=== PATIENT | male | born 1990 | race Hispanic/Latino ===

== ENCOUNTER 2020-11-07 15:50 | Emergency (ER) | payer SELFPAY ==
[2020-11-07 15:49] VITALS: BP 141/97; PULSE 85; RESP 19; TEMP 36.4; O2SAT 99
--- NOTE | 2020-11-07 16:02 | ECG_ITS ---
Measurements Intervals [place] Rate: 73 P: 50 IA: 129 QRS: 80 QRSD: 97 T: 44 QT: 367 QTc: 405 Interpretive Statements SINUS RHYTHM PEAKED T WAVES- CONSIDER HYPERKALEMIA OR ISCHEMIA BASELINE ARTIFACT- II, AVR, V3-V6 ABNORMAL ECG Electronically Signed On 11-07-2020 16:14:46 CDT by Guido Tamayo D.O.
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
[2020-11-07 17:18] LABS: Basophils Percent Auto 0.2 % (0.2-1.2); Eosinophils Percent Auto 0.1 % (0-4.4); Hematocrit 42.9 % (42.0-52.0); Immature Granulocyte Absolute 0.08 K/mm3 (0.00-0.031); Immature Granulocyte Percent A 0.5 % (0-0.5); Lymphocytes Absolute Auto 0.94 K/mm3 (0.9-3.2); Lymphocytes Percent Auto 5.8 % (18.3-44.2); Mean Corpuscular HGB Conc 32.6 g/dl (32-36); Mean Corpuscular Hemoglobin 29.6 pg (26-34); Mean Corpuscular Volume 90.7 fl (80-100); Mean Platelet Volume 10.1 fl (7.4-10.4); Monocytes Absolute Auto 0.8 K/mm3 (0.1-0.6); Neutrophils Absolute Auto 14.3 K/mm3 (1.3-6.7); Neutrophils Percent Auto 88.4 % (45.5-73.1); Platelet Count Result 291 k/mm3 (150-375); Red Blood Count 4.73 M/mm3 (4.6-6.20); Red Cell Distribution Width 12.9 % (11.5-14.5); White Blood Count 16.1 K/mm3 (4.5-10.0)
[2020-11-07 17:28] LABS: Anion Gap 12 mmol/L (8-16); Blood Urea Nitrogen 10 mg/dL (9-20); Calcium 9.9 mg/dL (8.4-10.2); Carbon Dioxide 26 mmol/L (22-30); Chloride 101 mmol/L (98-107); Estimated CRCL calculation 85 ml/min; Estimated Glomerular Filt Rate > 60; Glucose 120 mg/dL (75-110); Potassium 4.4 mmol/L (3.4-5.0); Sodium 139 mmol/L (137-145)
[2020-11-07 18:05] VITALS: BP 142/90; PULSE 84; RESP 15; O2SAT 100
[2020-11-07] MEDS: ACETAMINOPHEN 500 MG TABLET 1000 MG PO (18:05)
[2020-11-07] MEDS: OXcarbazepine 300 MG TABLET PO (18:16)
[2020-11-07] MEDS: OXcarbazepine 150 MG TABLET PO (18:16)
[2020-11-07 18:34] VITALS: BP 129/75; PULSE 79; RESP 15; O2SAT 100
== END 2020-11-07 18:35 | disposition home or self-care (01) ==
PROVIDERS: Emergency Provider Emergency Medicine
DX: G40.909 Epilepsy, unspecified, not intractable, without status epilepticus (principal); R94.31 Abnormal electrocardiogram [ECG] [EKG]
CPT/HCPCS: 36415; 80048; 85025; 93005; 99283; A9270

== ENCOUNTER 2022-03-14 12:30 | Inpatient (IN) | payer OTHER, SELFPAY ==
[2022-03-14] VITALS (60 sets, daily range): BP systolic 92–184; BP diastolic 45–102; PULSE 84–191; RESP 11–33; TEMP 37.1–39.4; O2SAT 93–100; BMI 24.3
--- NOTE | ~2022-03-14 | XR_ITS ---
XR chest ET placement DATE: 03/14/2022 20:05 INDICATION: Endotracheal tube placement TECHNIQUE: Portable supine AP chest on 03/14/2022 at 2001 hours COMPARISON: 03/14/2022 portable supine AP chest FINDINGS: ET tube 2.3 cm above yovani in satisfactory position. Normal heart size. No hilar or mediastinal enlargement. No pulmonary infiltrate or consolidation, ple ural effusion or pulmonary vascular congestion or pneumothorax or pneumomediastinum is noted. Included skeletal structures are unremarkable. IMPRESSION: ET tube in satisfactory position 2.3 cm above yovani Reviewed, dictated and finalized at [facility]. Reviewed, dictated and finalized at location [facility]. E
--- NOTE | ~2022-03-14 | XR_ITS ---
XR chest 1V portable 03/18/2022 07:56 Indication: Intubation. Respiratory distress. Procedure: AP portable chest Comparison: Comparison to multiple prior studies sequentially, with oldest reviewed study dated 03/02. Findings: Endotracheal tube tip 1.2 cm above the yovani. NG tube in the stomach. Left basilar infiltr ates are present. No pleural effusion, edema or pneumothorax. Impression: 1: Left basilar infiltrate may represent atelectasis or developing pneumonia. Reviewed, dictated and finalized at location A. CIPAL JAVA SOFTWARE ENGINEER Impression: 1: Left basilar infiltrate may represent atelectasis or developing pneumonia.
--- NOTE | ~2022-03-14 | XR_ITS ---
EXAMINATION: XR chest 1V portable DATE: 03/15/2022 05:57 INDICATION: Intubated. TECHNIQUE: A single frontal view of the chest was obtained. COMPARISON: Chest single view 03/14/2022, CT abdomen and pelvis 03/14/2022 FINDINGS: The chest demonstrates clear lungs without pneumonia, pleural effusion, or pneumothorax. Th e heart size is normal. The endotracheal tube tip is 3.6 cm above the yovani. The nasogastric tube lo ops in the stomach and back into the esophagus with tip in the distal esophagus. IMPRESSION: 1. No acute cardiopulmonary disease. 2. Nasogastric tube tip in the distal esophagus. Reviewed, dictated and finalized at location A. EN STITCHER
--- NOTE | ~2022-03-14 | XR_ITS ---
XR chest 1V portable DATE: 03/14/2022 15:01 INDICATION: Seizure TECHNIQUE: Portable supine AP views on 03/14/2022 at 1451 hours COMPARISON: None FINDINGS: Normal heart size. No hilar or mediastinal enlargement. No pulmonary infiltrate or consolid ation, pleural effusion or pulmonary vascular congestion or pneumothorax. IMPRESSION: No active cardiopulmonary disease Reviewed, dictated and finalized at location A. MOTIVE SERVICE TECHNICIAN
--- NOTE | ~2022-03-14 | CT_ITS ---
EXAMINATION: CT brain wo con DATE: 03/14/2022 15:12 INDICATION: Seizure TECHNIQUE: Computed tomography (CT) of the head was performed without intravenous contrast. The mA wa s adjusted according to patient size. Iterative reconstruction technique was employed. Exam dose: 60 5.33 mGy-cm total exam DLP. COMPARISON: 11/09/2016 CT brain FINDINGS: No intracranial mass lesion or hemorrhage or cerebrovascular accident. No midline shift or mass effect. Normal ventricular size. No subdural or epidural hematoma. Normal phillips-white matter diff erentiation. Orbits are unremarkable. Paranasal sinuses and mastoid air cells are unremarkable. No fracture or bone destruction of the cranial vault. IMPRESSION: Negative Reviewed, dictated and finalized at [facility]. Reviewed, dictated and finalized at location A. L CEILING HANGER IMPRESSION: Negative
--- NOTE | ~2022-03-14 | CT_ITS ---
EXAMINATION: CT cervical spine wo con DATE: 03/14/2022 15:12 INDICATION: Seizure TECHNIQUE: Computed tomography (CT) of the cervical spine was performed without intravenous contrast. Automated exposure control and iterative reconstruction technique were employed. Exam dose: 358.28 mGy-cm total exam DLP. COMPARISON: None FINDINGS: Reversal of cervical curvature, which may be due to muscle spasm or positioning. Moderate t o moderately severe degenerative disc disease at C5-6. Mild degenerative disease at C4-5, C6-7. C1 and C2 are normally aligned and the odontoid process is intact. No fracture or dislocation or lock ed facet or prevertebral soft tissue swelling. IMPRESSION: Reversal of cervical curvature which may be due to muscle spasm or positioning Multilevel mild to moderately severe degenerative disc disease No fracture or dislocation or locked facet Note: ET tube extends only to the C3 level., Mid the posterior aspect of the superior tip of the epig lottis Reviewed, dictated and finalized at [facility]. Reviewed, dictated and finalized at location A. S EXECUTIVE IMPRESSION: Reversal of cervical curvature which may be due to muscle spasm or positioning Multilevel mild to moderately severe degenerative disc disease No fracture or dislocation or locked facet Note: ET tube extends only to the C3 level., Mid the posterior aspect of the pollack perior tip of the epiglottis
--- NOTE | ~2022-03-14 | XR_ITS ---
XR abdomen NG/feed tube insert DATE: 03/14/2022 20:19 INDICATION: NG tube insertion TECHNIQUE: Portable supine AP view on 03/14/2022 at 2006 hours COMPARISON: None FINDINGS: A nasogastric tube enters the stomach, coiling once and then returning into the distal esop hagus, with the proximal side port in the very distal aspect of the esophagus just above the diaphrag m. NG tube tip is in the distal esophagus directed cephalad. Repositioning is recommended. IMPRESSION: NG tube enters stomach and then reenters the esophagus, with the proximal side-port in th e very lower aspect of the thorax, the distal tip of the NG tube in the lower esophagus, directed cep halad. Repositioning is recommended. Reviewed, dictated and finalized at [facility]. Reviewed, dictated and finalized at location A. ATRIC ORTHODONTIST IMPRESSION: NG tube enters stomach and then reenters the esophagus, with the pr oximal side-port in the very lower aspect of the thorax, the distal tip of the NG tube in the lower esophagus, directed cephalad. Repositioning is recommended .
--- NOTE | ~2022-03-14 | XR_ITS ---
EXAMINATION: XR chest 1V portable DATE: 03/16/2022 05:50 INDICATION: Intubated. TECHNIQUE: A single frontal view of the chest was obtained. COMPARISON: Chest single view 03/15/2022, CT abdomen and pelvis 03/14/2022 FINDINGS: There is no pneumonia, pleural effusion, or pneumothorax. The heart size is normal. The end otracheal tube tip is 2.7 cm above the yovani. The nasogastric tube loops in the stomach with tip in the distal esophagus. IMPRESSION: 1. No acute cardiopulmonary disease. 2. Nasogastric tube tip in the distal esophagus. Reviewed, dictated and finalized at location A. SPERSON HOSIERY
--- NOTE | ~2022-03-14 | XR_ITS ---
EXAMINATION: XR abdomen NG/feed tube rechec DATE: 03/16/2022 09:09 INDICATION: Nasogastric tube adjustment. TECHNIQUE: A semiupright view of the abdomen was obtained. COMPARISON: Abdomen radiograph 03/14/2022 FINDINGS: There are no dilated loops of bowel. The nasogastric tube tip is in the stomach. IMPRESSION: 1. Nasogastric tube tip in the stomach. Reviewed, dictated and finalized at location A. ADJUSTER
--- NOTE | ~2022-03-14 | XR_ITS ---
EXAMINATION: XR chest 1V portable DATE: 03/17/2022 06:17 INDICATION: Intubated. TECHNIQUE: A single frontal view of the chest was obtained. COMPARISON: Chest single view 03/16/2022, CT abdomen and pelvis 03/14/2022 FINDINGS: There is no pneumonia, pleural effusion, or pneumothorax. The heart size is normal. The end otracheal tube tip is 2.0 cm above the yovani. The nasogastric tube tip is in the stomach. IMPRESSION: 1. No acute cardiopulmonary disease. Reviewed, dictated and finalized at location A. ICAL CARE PHYSICIAN
--- NOTE | ~2022-03-14 | CT_ITS ---
EXAMINATION: CT abdomen pelvis w con DATE: 03/14/2022 18:11 INDICATION: Leukocytosis. Abdominal pain. Fever. Unresponsive. TECHNIQUE: Computed tomography (CT) of the abdomen and pelvis was performed with 100 CC Omnipaque 350 intravenous contrast. Automated exposure control and iterative reconstruction technique were employe d. Exam dose: 520.22 mGy-cm total exam DLP. COMPARISON: None. FINDINGS: The lung bases are clear. Normal heart size. No pericardial or pleural effusion. The liver, gallbladder, bile ducts, spleen, pancreas and pancreatic duct are unremarkable. Normal morphology of the adrenal glands. No renal mass lesion or urinary tract calculus or hydrourete ronephrosis or abnormality of the urinary bladder is noted. Normal caliber of the abdominal aorta. No intraperitoneal or retroperitoneal or pelvic mass lesion or adenopathy or ascites. No apparent evidence of appendicitis. No bowel obstruction or intraperitoneal free air. Small fat-containing umbilical hernia. Included skeletal structures are unremarkable. IMPRESSION: No significant abnormality Reviewed, dictated and finalized at [facility] Reviewed, dictated and finalized at [facility] DESTRU[employer] TESTING [employer]IST IMPRESSION: No significant abnormality
--- NOTE | 2022-03-14 12:40 | ED.SEIZURE ---
HPI - Seizure General Chief Complaint: Seizure Stated Complaint: SEIZURE Time Seen by Provider: 03/14/22 12:36 Source: EMS Mode of arrival: EMS Limitations: clinical condition History of Present Illness HPI Narrative: 31 years old male brought to the emergency room by ambulance from home because of unresponsiveness. Patient believed to have a seizure, patient was combative with EMS upon Emergent from seizure. Patient had another seizure while in the ambulance. Patient arrived to the ED on nasopharyngeal tube Please on Oxcarbamazepine 300 mg twice a day, a bottle of methadone still full since . Obviously patient does not take his medications. No family member or significant other at the bedside. Patient arrived to the ED unresponsive/possible postictal. Patient's father came to the emergency room later and told me that last time have seen the patient was noon yesterday, at 5 AM he heard some noise in his room he ran to the room and found him seizing. He is telling me that he is at least 8-10 times before the ambulance arrived to his home. He reports that the patient is disabled because of injury and seizure, patient does not have a job, does not take drugs, and he is not sure if his son takes his seizure medication or not. Last seizure was about 7 months ago Seizure History: Yes Related Data Home Medications Medication Instructions Recorded Confirmed oxcarbazepine 300 mg tablet 300 mg PO BID 11/07/20 Allergies Allergy/AdvReac Type Severity Reaction Status Date / Time No Known Allergies Allergy Verified 11/07/20 16:06 Review of Systems Review of Systems: ROS unobtainable: Yes unobtainable due to medical condition and unobtainable due to mental status PMFSH Past Medical History Medical History Anxiety Depression Pseudoseizure Seizure disorder Surgical History Surgical History No pertinent past surgical history Social History Social History Substance use type: marijuana Exam Narrative: General appearance: Well-developed, well-nourished, unresponsive to verbal commands, opening eyes every now and then Skin: Normal color Head: Normocephalic, nontraumatic Eyes: Clear conjunctiva ENT: Oropharynx normal, ears normal, nose normal Neck: Supple, nontender Chest and respiratory: Airway patent, no respiratory distress, no accessory muscle use Heart: Regular rate/rhythm Abdomen: Soft, nontender, no organomegaly, quiet bowel sounds Vascular: Normal peripheral pulses, normal capillary refill. Neurologic: Responsive to painful stimulation/withdrawal Const: General: ill appearing Course Course Emergency Course: Patient arrived to the ED with possibly postictal, confused, sleepy, responsive to painful stimulation by opening his eyes, later patient was able to open his eye and sit in the bed, restless all over, his temperature on arrival to the ED was 37.1, later his temperature went up to 38.8, tested positive for RSV, WBC is 22.9, secondary to bacterial infection versus reaction leukocytosis. Later patient vomited coffee-ground substance, no history of alcohol abuse, spinal tap was done, clear cerebrospinal fluid, patient received 1 g of Keppra IV on arrival to the emergency room, later had ceftriaxone, vancomycin and dexamethasone for possible bacterial meningitis, and acyclovir for possible viral meningitis/encephalitis. Creatinine is 1.7 compared to 1.1 in the last few months, patient received 2 L of normal saline IV. Consultations Consultation #1: DR Eagle
--- NOTE | 2022-03-14 12:47 | ECG_ITS ---
Measurements Intervals [place] Rate: 103 P: 73 CO: 135 QRS: 88 QRSD: 84 T: 60 QT: 291 QTc: 381 Interpretive Statements SINUS TACHYCARDIA POSSIBLE RIGHT ATRIAL ENLARGEMENT LEFT ATRIAL ENLARGEMENT PEAKED T WAVES- CONSIDER HYPERKALEMIA BASELINE ARTIFACT- I ABNORMAL ECG COMPARED TO ECG 11/07/2020 16:00:35 SINUS TACHYCARDIA NOW PRESENT Electronically Signed On 03-15-2022 7:41:54 AIRPORT DUTY MANAGER by Guido Tamayo D.O.
[2022-03-14] MEDS: levETIRAcetam 1000MG/NACL100ML 1,000 MG/100 ML BAG 400 MG IVPB (13:11)
[2022-03-14 13:14] LABS: Basophils Absolute Auto 0.1 K/mm3 (0.0-0.1); Basophils Percent Auto 0.3 % (0.2-1.2); Hematocrit 46.9 % (42.0-52.0); Hemoglobin 15.6 g/dL (14.0-18.0); Immature Granulocyte Absolute 0.24 K/mm3 (0.00-0.031); Immature Granulocyte Percent A 1.1 % (0-0.5); Lymphocytes Absolute Auto 2.03 K/mm3 (0.9-3.2); Lymphocytes Percent Auto 8.9 % (18.3-44.2); Mean Corpuscular HGB Conc 33.3 g/dl (32-36); Mean Corpuscular Hemoglobin 31.6 pg (26-34); Mean Corpuscular Volume 94.9 fl (80-100); Mean Platelet Volume 10.8 fl (7.4-10.4); Monocytes Absolute Auto 1.7 K/mm3 (0.1-0.6); Monocytes Percent Auto 7.6 % (2.6-8.5); Neutrophils Absolute Auto 18.8 K/mm3 (1.3-6.7); Neutrophils Percent Auto 82.1 % (45.5-73.1); Platelet Count Result 395 k/mm3 (150-375); Red Blood Count 4.94 M/mm3 (4.6-6.20); Red Cell Distribution Width 13.1 % (11.5-14.5); White Blood Count 22.9 K/mm3 (4.5-10.0)
[2022-03-14 13:27] LABS: Albumin Level 5.8 g/dL (3.5-5.1); Alkaline Phosphatase 105 U/L (38-126); Anion Gap 33 mmol/L (8-16); Aspartate Amino Transferase 44 U/L (17-59); Bilirubin,Total 0.2 mg/dL (0.2-1.3); Blood Urea Nitrogen 8 mg/dL (9-20); Calcium 9.4 mg/dL (8.4-10.2); Carbon Dioxide 8 mmol/L (22-30); Chloride 104 mmol/L (98-107); Estimated Glomerular Filt Rate 48; Glucose 204 mg/dL (65-110); Potassium 4.3 mmol/L (3.4-5.0); Sodium 145 mmol/L (137-145)
[2022-03-14 13:33] LABS: Alanine Aminotransferase 38 U/L (6-50)
[2022-03-14] MEDS: LORazepam INJ (*CRX) 2 MG/ML VIAL IV PUSH ×3 (13:36→20:10)
[2022-03-14 13:46] LABS: Ethanol < 10 mg/dL (<10)
[2022-03-14 13:47] LABS: Creatine Kinase 322 U/L (55-170)
[2022-03-14 13:49] LABS: INR 1.1; Prothrombin Time 13.6 Seconds (11.1-14.7)
[2022-03-14] MEDS: SODIUM CHLORIDE 0.9% IV 1,000 ML 999 ML IV CONT ×2 (13:57→20:11)
--- NOTE | 2022-03-14 14:28 | PCRCNOTE ---
ABG CANCELLED PER DR. GABRIEL. PT. IS VERY WILD AND COMBATIVE.
[2022-03-14 15:55] LABS: Prothrombin Time 13.2 Seconds (11.1-14.7)
[2022-03-14 15:56] LABS: Lactic Acid Reflex 3.4 mmol/L (0.7-2.0); Partial Thromboplastin Time 26.3 SECONDS (22.3-36.8)
[2022-03-14 15:59] LABS: CRP < 0.5 mg/dL (<1.0)
[2022-03-14 16:23] LABS: Influenza A QL RT-PCR Negative (Negative); Influenza B QL RT-PCR Negative (Negative); RSV RNA, RT-PCR Positive (Negative); SARS-CoV-2 RNA PCR Negative
[2022-03-14 16:27] LABS: Monoscreen Negative (Negative); Negative Monotest Control Negative (Negative); Positive Monotest Control Positive (Positive)
[2022-03-14 18:16] LABS: Glucose CSF 94 mg/dL (40-70); Total Protein CSF 64 mg/dL (12-60)
[2022-03-14] MEDS: cefTRIAXone 2 GM in SODIUM CHLORIDE 0.9% IV 100 ML 200 ML IVPB (18:25)
[2022-03-14] MEDS: ETOMIDATE 20 MG/10 ML AMPUL 60 MG IV PUSH (18:26)
[2022-03-14 18:32] LABS: Appearance CSF Clear (Clear); CSF source CSF; Color CSF Colorless (Colorless); Lymphocytes CSF 40 % (40-80); Neutrophils CSF 20 % (0-6); Nucleated Cell CSF 4 /uL (0-5); Red Blood Cell CSF 8 (0-2)
[2022-03-14 18:33] LABS: Monocytes CSF 40 % (15-45)
[2022-03-14 18:42] LABS: Reflex Lactic Acid Yes or No Add Lactic
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
--- NOTE | 2022-03-14 19:50 | WPDPROCEDUR ---
Procedures Intubation Intubation Date: 03/14/22 Intubation Time: 19:50 Consent: Intubated emergently. A pre-procedural Time-Out was completed immediately before starting the procedure and confirmed: Patient Identification, Site, Procedure, Patient Position and the Availability of Requisite Equipment: Yes Sedative: etomidate Mg given: 20 Paralytic: succinylcholine Mg given: 100 Laryngoscope: fiber optic video scope Assist device used: fiber optic device ET tube size: 8 Tube secured depth (cm): 23 Tube secured location: teeth Tube placement confirmation: visualized tube passing through cords, equal breath sounds bilaterally, no breath sounds over epigastrium and confirmation by capnometry Patient tolerated procedure: well Intubation complications: none Additional comments: Patient was intubated easily and atraumatically on 1st attempt. SpO2 remained in the high 90s the entire time. Chest x-ray pending at the time of this dictation.
[2022-03-14] MEDS: PROPOFOL IV EMULSION 100 ML 2.3 MG IV CONT (19:55)
[2022-03-14] MEDS: ACYCLOVIR SODIUM IVPB 800 MG in DEXTROSE 5% IN WATER 250 ML 266 MG IVPB (20:46)
[2022-03-14] MEDS: MIDAZOLAM 100MG/NS 100ML(*CRX) 100 MG/100 ML BAG 6 MG IV CONT (21:00)
[2022-03-14] MEDS: PANTOPRAZOLE SODIUM IV 40 MG VIAL IV PUSH ×2 (21:05→21:22)
[2022-03-14] MEDS: SODIUM CHLORIDE 0.9% IV 1,000 ML 150 ML IV CONT (21:25)
[2022-03-14 21:30] LABS: Base Excess ABG -5.3 mEq/l (+/-2.0); HCO3 ABG 17.6 mEq/l (22.0-26.0); Oxygen Saturation ABG 99.2 % (95.0-100.0)
[2022-03-14 21:31] LABS: Total Hemoglobin 12.9 g/dL (12.0-18.0)
[2022-03-14 21:33] LABS: Carboxyhemoglobin 0.3 % THb (0-2.0); Oxyhemoglobin 97.6 % THb (90.0-100.0)
[2022-03-14 21:34] LABS: Device VENTILATOR; Fractional Inspired Oxygen 40 %; Methemoglobin ABG 0.4 %THb (0-1.5); Modified Allen's Test Pass; PO2 FiO2 Ratio Arterial Blood 4.29 %; Reduced Hemoglobin 1.7 %THb (0-5.0); Site Drawn RIGHT RADIAL
[2022-03-14 21:35] LABS: Arterial Blood Gas PEEP 5 cmH2O; Arterial Blood Gas Tidal Volume 400 ml; Arterial Blood Gas Vent Mode CMV; Arterial Blood Gas Ventilator rate 15 /MIN
[2022-03-14] MEDS: LABETALOL HCL INJ 100 MG/20 ML VIAL 20 MG IV PUSH (21:37)
--- NOTE | 2022-03-14 22:00 | ADMGEN ---
This patient, Conrad Frye, was admitted to Intensive Care Unit-10. Patient/family oriented to hospital policies and general routines including ID bracelet, bed and alarms, visiting hours, pain management, procedures, bathroom and other care routines, personal items, smoking policy, room service/diet, and visiting hours. Information on how to activate the Rapid Response Team has been discussed. Patient/Family are encouraged to report perceived risks to care and to ask questions if they do not understand what they are told or what they should do.
--- NOTE | 2022-03-14 22:09 | PC.NURSE ---
This RN assumed care of patient at aprx 191. Upon assessment of pt RN noticed seizure like activity followed by pulling of tubes and IVs. RN spoke with ERP on duty at that time Dr. Forde who is agreeable that pt would need to be intubated and sedated to protect his airway. Assisting in the room was attending Dr. Chary Mei who completed the tube placement, RASHIDA Harris, Bárbara Tinoco RN,and 3 respiratory therapists. Pt was combative and restrained with soft restraints on all extremities at 1944. IV lines were placed by Bárbara FIELD. At [address] Chary Mei. Tube size 8, 24 at the teeth verified with bedside xray. At 1999 NG tube in left nare placed by Kimberly FIELD along with the 16F temp lewis. NG tube set to intermittent suction and Lewis had good urine output. Medications given for sedation per Dr. Chary Mei verbal order read back at 1944 included 100mg of Succs and 20 etomodate. Pt tolerated procedure well. Propofol drip ordered per Dr. Chary Mei verbal order read back. Pt maxed out of propofol drip at 50mcs/kg/min. Pt not tolerating propofol only for sedation. Dr. Garcia in room to assess pt verbal order read back to give one time 2mg iv push of versed and 50mg of rocks iv push one time. Versed drip ordered verbal order read back by erp Dr. Garcia start Versed drip at 6mg/hr. pt showing seizure like activity and versed maxed out at 10mg/hr. Pt BP maintained, feverish at 102, and HR in 190's. Tylenol IV given and icepacks placed. Dr. Garcia and Dr. Martin both ERP in room to assess pt and verbal order read back give 20mg of labetolol iv push one time for heart rate. Push given and pt heart rate in the 120's. Pt at this time stable enough for transport to ICU.
[2022-03-14] MEDS: MINERAL OIL/WHITE PETROLATUM OINTMENT 1 APPLIC EACH EYE (22:48)
[2022-03-14 23:25] LABS: Lactic Acid 2.3 mmol/L (0.7-2.0)
[2022-03-14 23:28] LABS: CRP 1.4 mg/dL (<1.0)
[2022-03-14 23:42] LABS: Erythrocyte Sedimentation Rate 3 mm/hr (0-20); Hemoglobin A1C 5.1 % (<5.7)
[2022-03-14] MEDS: MIDAZOLAM HCL (*CRX) 2 MG/2 ML VIAL 4 MG IV PUSH (23:54)
[2022-03-14 23:55] LABS: Anion Gap 15 mmol/L (8-16); Blood Urea Nitrogen 9 mg/dL (9-20); Carbon Dioxide 18 mmol/L (22-30); Chloride 105 mmol/L (98-107); Creatine Kinase 3099 U/L (55-170); Estimated CRCL calculation 99 ml/min; Estimated Glomerular Filt Rate > 60; Glucose 88 mg/dL (65-110); Potassium 3.7 mmol/L (3.4-5.0); Sodium 138 mmol/L (137-145)
[2022-03-15] VITALS (50 sets, daily range): BP systolic 96–130; BP diastolic 64–94; PULSE 69–108; RESP 15–23; TEMP 36.2–39.4; O2SAT 100; BMI 20.9
[2022-03-15 00:18] LABS: Procalcitonin 1.3 ng/mL
[2022-03-15] MEDS: OXcarbazepine 300 MG TABLET 600 MG PO ×3 (02:24→20:54)
[2022-03-15] MEDS: MIDAZOLAM HCL (*CRX) 2 MG/2 ML VIAL 4 MG IV PUSH ×2 (02:25→15:37)
[2022-03-15] MEDS: PROPOFOL IV EMULSION 100 ML 23.01 MG IV CONT ×4 (02:41→17:06)
[2022-03-15 04:33] LABS: Basophils Percent Auto 0.2 % (0.2-1.2); Hematocrit 35.5 % (42.0-52.0); Hemoglobin 11.9 g/dL (14.0-18.0); Immature Granulocyte Absolute 0.07 K/mm3 (0.00-0.031); Immature Granulocyte Percent A 0.7 % (0-0.5); Lymphocytes Absolute Auto 1.11 K/mm3 (0.9-3.2); Lymphocytes Percent Auto 10.3 % (18.3-44.2); Mean Corpuscular HGB Conc 33.5 g/dl (32-36); Mean Corpuscular Hemoglobin 30.4 pg (26-34); Mean Corpuscular Volume 90.8 fl (80-100); Mean Platelet Volume 10.4 fl (7.4-10.4); Monocytes Absolute Auto 0.4 K/mm3 (0.1-0.6); Monocytes Percent Auto 3.9 % (2.6-8.5); Neutrophils Absolute Auto 9.1 K/mm3 (1.3-6.7); Neutrophils Percent Auto 84.9 % (45.5-73.1); Platelet Count Result 233 k/mm3 (150-375); Red Blood Count 3.91 M/mm3 (4.6-6.20); Red Cell Distribution Width 13.1 % (11.5-14.5); White Blood Count 10.8 K/mm3 (4.5-10.0)
[2022-03-15 04:54] LABS: Alanine Aminotransferase 24 U/L (6-50); Albumin Level 4.2 g/dL (3.5-5.1); Alkaline Phosphatase 57 U/L (38-126); Anion Gap 12 mmol/L (8-16); Aspartate Amino Transferase 68 U/L (17-59); Bilirubin,Total 0.3 mg/dL (0.2-1.3); Blood Urea Nitrogen 8 mg/dL (9-20); Calcium 8.4 mg/dL (8.4-10.2); Carbon Dioxide 20 mmol/L (22-30); Chloride 105 mmol/L (98-107); Estimated CRCL calculation 99 ml/min; Estimated Glomerular Filt Rate > 60; Glucose 103 mg/dL (65-110); Potassium 3.5 mmol/L (3.4-5.0); Sodium 137 mmol/L (137-145)
[2022-03-15] MEDS: cefTRIAXone 2 GM in SODIUM CHLORIDE 0.9% IV 100 ML 200 ML IVPB ×2 (05:11→17:07)
[2022-03-15 05:12] LABS: Alveolar/Arterial O2 Gradient 84.5 mmHg; Base Excess ABG -3.9 mEq/l (+/-2.0); Fractional Inspired Oxygen 40 %; HCO3 ABG 20.2 mEq/l (22.0-26.0); Oxygen Content ABG 17.8 %vol (16.0-22.0); Oxygen Saturation ABG 99.1 % (95.0-100.0); Oxyhemoglobin 97.7 % THb (90.0-100.0); PCO2 ABG 33.6 mmHg (35.0-45.0); PO2 ABG 162.1 mmHg (80.0-100.0); PO2 FiO2 Ratio Arterial Blood 4.05 %; Total Hemoglobin 12.7 g/dL (12.0-18.0); pH ABG 7.396 (7.350-7.450)
[2022-03-15 05:13] LABS: Device VENTILATOR; Modified Allen's Test Pass; Site Drawn LEFT RADIAL
[2022-03-15 05:14] LABS: Arterial Blood Gas PEEP 5 cmH2O; Arterial Blood Gas Tidal Volume 400 ml; Arterial Blood Gas Vent Mode CMV; Arterial Blood Gas Ventilator rate 15 /MIN
[2022-03-15 05:49] LABS: Creatine Kinase 3093 U/L (55-170)
[2022-03-15] MEDS: SODIUM CHLORIDE 0.9% IV 1,000 ML 150 ML IV CONT (06:03)
[2022-03-15] MEDS: MIDAZOLAM 100MG/NS 100ML(*CRX) 100 MG/100 ML BAG 10 MG IV CONT ×2 (06:04→14:19)
[2022-03-15] MEDS: ACYCLOVIR SODIUM IVPB 800 MG in DEXTROSE 5% IN WATER 250 ML 266 MG IVPB (06:04)
[2022-03-15] MEDS: levETIRAcetam 1000MG/NACL100ML 1,000 MG/100 ML BAG 400 MG IVPB ×2 (08:51→22:17)
[2022-03-15] MEDS: PANTOPRAZOLE SODIUM IV 40 MG VIAL IV PUSH ×2 (08:51→20:50)
[2022-03-15] MEDS: POTASSIUM CHLORIDE 20 MEQ PACKET (FOR LIQUID) 40 MEQ FEED TUBE (09:02)
--- NOTE | 2022-03-15 09:03 | WPDCNINT ---
Assessment and Plan Assessment and plan (1) Acute respiratory failure: Code(s): J96.00 - Acute respiratory failure, unspecified whether with hypoxia or hypercapnia Status: Acute Assessment and Plan: Acute Respiratory failure secondary to status epilepticus Continue full mechanical ventilation support to prevent hypoxemia/hypercarbia and end organ damage. ABG and vent settings reviewed Chest x-ray reviewed -withdraw OG tube by 5 cm . Low tidal volume ventilation strategy to prevent volutrauma (2) Acute kidney injury: Code(s): N17.9 - Acute kidney failure, unspecified Status: Acute Assessment and Plan: Likely secondary to hypovolemia and rhabdomyolysis Improving with IV fluids Electrolytes acceptable Monitor urine output electrolytes and creatinine Replace low potassium (3) Metabolic acidosis: Code(s): E87.20 - Acidosis, unspecified Status: Acute Assessment and Plan: Secondary to acute kidney injury and rhabdomyolysis Improving Monitor (4) Status epilepticus: Code(s): G40.901 - Epilepsy, unspecified, not intractable, with status epilepticus Status: Acute Assessment and Plan: Patient has history of seizures and presented with status epilepticus Currently sedated with Versed and propofol Continue Keppra and home medication of ox carbazepine Consult neurology Obtain EEG (5) RSV (respiratory syncytial virus infection): Code(s): B33.8 - Other specified viral diseases Status: Acute Assessment and Plan: Symptomatic treatment (6) Hematemesis: Code(s): K92.0 - Hematemesis Status: Acute Assessment and Plan: There was some report of hematemesis in the ED but which he tube suction has been clear He did had drop in his hemoglobin but did receive IV fluids which could explain Monitor hemoglobin every 6 hours IV PPI q.12 hours Checked Stool Hemoccult (7) Fever: Code(s): R50.9 - Fever, unspecified Status: Acute Assessment and Plan: Patient was febrile in the ER. He was tested positive for RSV which could explain the fever due to his mental status and sub status epilepticus meningitis was suspected Patient had LP done which showed only for nucleated cells Glucose was slightly elevated at 94 and total protein was slightly elevated at 64 He is currently on empiric antibiotics meningitis and HSV encephalitis Gram stain cultures are pending HSV PCR has been ordered and is pending Will discuss with neurology regarding discontinuing antibiotics and acyclovir (8) Rhabdomyolysis: Code(s): M62.82 - Rhabdomyolysis Status: Acute Assessment and Plan: Likely secondary to seizures Continue IV fluids Monitor CK level Plan DVT prophylaxis -start Lovenox 24 hours after LP Stress ulcer prophylaxis -IV PPI Nutrition -start Tube Feeds Code Status - Full Code Total Critical Care Time - 35 minutes Due to a high probability of clinically significant, life threatening deterioration, the patient required my highest level of preparedness to intervene emergently and I personally spent this critical care time directly and personally managing the patient. This critical care time included obtaining a history; examining the patient; pulse oximetry; ordering and review of studies; arranging urgent treatment with development of a management plan; evaluation of patient's response to treatment; frequent reassessment; and discussions with other providers. It was exclusive of separately billable procedures and treating other patients and teaching time. Please see Assessment and Plan section and the rest of the note for further information on patient assessment and treatment Pta Consult Note Consult date: 03/15/22 Reason for consult: Status epilepticus, acute respiratory failure HPI: Conrad Frye is a 31 year old male with history of seizure disorder who presented to the emergency department via EMS fr
[2022-03-15] MEDS: LACTATED RINGERS 1,000 ML 150 ML IV CONT ×2 (09:10→17:06)
[2022-03-15] MEDS: MINERAL OIL/WHITE PETROLATUM OINTMENT 1 APPLIC EACH EYE ×2 (09:31→20:50)
[2022-03-15 09:44] LABS: Glucose Point of Care 119 mg/dl (65-105)
[2022-03-15 12:03] LABS: Glucose Point of Care 100 mg/dl (65-105)
[2022-03-15 12:04] LABS: Hematocrit 33.5 % (42.0-52.0); Hemoglobin 11.6 g/dL (14.0-18.0)
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
[2022-03-15] MEDS: ACYCLOVIR SODIUM IVPB ×2 (14:22→22:44)
[2022-03-15] MEDS: WATER IVPB ×2 (14:22→22:44)
[2022-03-15] MEDS: DEXTROSE 5% IVPB ×2 (14:22→22:44)
--- NOTE | 2022-03-15 16:36 | WPDGICN ---
Assessment and Plan Assessment and plan (1) Status epilepticus: Code(s): G40.901 - Epilepsy, unspecified, not intractable, with status epilepticus Status: Acute Assessment and Plan: treated by friend of the court and neurology, underwent lumbar puncture because had fever intubated (2) Hematemesis: Code(s): K92.0 - Hematemesis Status: Acute Assessment and Plan: report of coffee ground emesis hb drop but after iv fluids, probably was hemoconcentrated on arrival iv protonix and monitor for signs of bleeding egd only if drop in h/h or obvious sign of bleeding (3) RSV (respiratory syncytial virus infection): Code(s): B33.8 - Other specified viral diseases Status: Acute (4) HERBERTH (acute kidney injury): Code(s): N17.9 - Acute kidney failure, unspecified Status: Acute Assessment and Plan: treatment by icu (5) Metabolic acidosis: Code(s): E87.20 - Acidosis, unspecified Status: Acute (6) Acute respiratory failure: Code(s): J96.00 - Acute respiratory failure, unspecified whether with hypoxia or hypercapnia Status: Acute Assessment and Plan: intubated, also airway protection GI Consult Note Consult date/time: 03/15/22 16:36 Reason for consult: coffee ground emesis HPI: Conrad Frye is a 31 year old male with history of seizure disorder who presented to the emergency department via EMS from home for multiple seizure and altered mental status, history is obtained from records as he is intubated in the ICU.? In ED he was combative and confused and had at least 1 episode of seizure in the ER and also history of non-compliance with medications. In ED he was treated with Keppra and Ativan.? Head CT was unremarkable.? Pertinent labs on arrival include a white blood cell count 22.9, carbon dioxide 8, anion gap 33, BUN 8, creatinine 1.70, lactic acid 3.4, and CK 322. CT of the head and neck did not show any acute finding and his chest x-ray was unremarkable.? He also had fever with temperature 102.9? Fahrenheit, lumbar puncture was performed, and he was started on empiric antibiotics and antivirals for possible meningitis and/or encephalitis. RSV positive. He was intubated because concerned of status epilepticus, also report of episode of coffee ground emesis. No report of bleeding since admission. NGT in place and he is on enteral feeding, intubated. Review of Systems Review of Systems: ROS unobtainable: Yes unobtainable due to endotracheal tube and unobtainable due to mental status PMFSH Past Medical History Medical History Anxiety Depression Pseudoseizure Seizure disorder Surgical History Surgical History Surgical history unknown Family History Family History Other Family history unknown Social History Social History Social History: Surrogate medical decision maker: Code status: Full code. Smoking status: Unknown if ever smoked Alcohol intake: unknown Substance use: unknown Substance use type: marijuana Additional living arrangements comments: The patient lives with his father in [place]. Additional occupation/education comments: Disabled. Spiritual care concerns: No Meds Home Medications and Allergies Home Medications Medication Instructions Recorded Confirmed Type oxcarbazepine 600 mg tablet 600 mg PO BID 03/14/22 03/14/22 History Allergies Allergy/AdvReac Type Severity Reaction Status Date / Time No Known Allergies Allergy Verified 11/07/20 16:06 Vital Signs Vital Signs - 24 hr 03/14/22 16:45 03/14/22 16:46 03/14/22 17:00 Temperature Pulse Rate 117 H 119 H 113 H Respiratory Rate 22 H 22 H 25 H Blood Pressure 110/58 L Pulse Oximetry 95 98 97 Oxygen Delivery Fraction
[2022-03-15 16:44] LABS: Appearance Urine Slightly Cloudy (Clear); Bilirubin Urine Negative (Negative); Blood Urine Trace-intact (Negative); Color Urine Yellow (Yellow); Glucose Urine UA Negative (Negative); Ketones Urine 1+ mg/dL (Negative); Leukocyte Esterase Ur Negative LEU/UL (Negative); Nitrate Urine Negative (Negative); Protein Urine Negative (Negative); Urobilinogen Urine 0.2 mg/dL (<2.0)
[2022-03-15 16:49] LABS: Bacteria Urine Trace /hpf; Mucus Urine Rare /lpf; Squamous Epithelial Cell Urine Rare /hpf (Few); WBC Urine 0-3 /hpf
[2022-03-15 17:00] LABS: Amphetamine Screen Urine Negative (Negative); Barbiturate Screen Urine Negative (Negative); Benzodiazepines Screen Urine Positive (Negative); Cannabinoid Screen Urine Positive (Negative); Cocaine Screen Urine Negative (Negative); Methadone Screen Urine Negative (Negative); Opiate Screen Urine Negative (Negative); Phencyclidine Screen Urine Negative (Negative)
[2022-03-15 17:02] LABS: Add Urine Microscopic? YES
[2022-03-15 17:46] LABS: Glucose Point of Care 110 mg/dl (65-105)
[2022-03-15 18:10] LABS: Anion Gap 12 mmol/L (8-16); Blood Urea Nitrogen 5 mg/dL (9-20); Calcium 8.5 mg/dL (8.4-10.2); Carbon Dioxide 20 mmol/L (22-30); Chloride 109 mmol/L (98-107); Estimated CRCL calculation 144 ml/min; Estimated Glomerular Filt Rate > 60; Glucose 110 mg/dL (65-110); Potassium 3.6 mmol/L (3.4-5.0); Sodium 141 mmol/L (137-145)
[2022-03-15 21:04] LABS: Hematocrit 32.3 % (42.0-52.0); Hemoglobin 10.8 g/dL (14.0-18.0)
[2022-03-15] MEDS: PROPOFOL IV EMULSION 100 ML 19.83 MG IV CONT (22:17)
[2022-03-16] VITALS (41 sets, daily range): BP systolic 108–146; BP diastolic 59–93; PULSE 73–141; RESP 15–25; TEMP 36.6–37.9; O2SAT 100
[2022-03-16 00:19] LABS: Hemoglobin 11.3 g/dL (14.0-18.0)
[2022-03-16 00:43] LABS: Glucose Point of Care 155 mg/dl (65-105)
[2022-03-16] MEDS: MIDAZOLAM 100MG/NS 100ML(*CRX) 100 MG/100 ML BAG 8 MG IV CONT (01:35)
[2022-03-16] MEDS: LACTATED RINGERS 1,000 ML 150 ML IV CONT ×3 (02:15→15:44)
[2022-03-16] MEDS: PROPOFOL IV EMULSION 100 ML 19.83 MG IV CONT ×2 (03:13→08:10)
[2022-03-16] MEDS: cefTRIAXone 2 GM in SODIUM CHLORIDE 0.9% IV 100 ML 200 ML IVPB ×2 (04:52→17:42)
[2022-03-16 05:12] LABS: Glucose Point of Care 149 mg/dl (65-105)
[2022-03-16 05:43] LABS: Alveolar/Arterial O2 Gradient 34.7 mmHg; Base Excess ABG -0.8 mEq/l (+/-2.0); Carboxyhemoglobin 0.2 % THb (0-2.0); Device VENTILATOR; Fractional Inspired Oxygen 30 %; Methemoglobin ABG 0.3 %THb (0-1.5); Modified Allen's Test Pass; Oxygen Content ABG 15.9 %vol (16.0-22.0); Oxyhemoglobin 97.4 % THb (90.0-100.0); PCO2 ABG 30.4 mmHg (35.0-45.0); PO2 ABG 143.5 mmHg (80.0-100.0); PO2 FiO2 Ratio Arterial Blood 4.78 %; Reduced Hemoglobin 2.1 %THb (0-5.0); Site Drawn RIGHT RADIAL; Total Hemoglobin 11.4 g/dL (12.0-18.0); pH ABG 7.478 (7.350-7.450)
[2022-03-16 05:44] LABS: Arterial Blood Gas PEEP 5 cmH2O; Arterial Blood Gas Tidal Volume 400 ml; Arterial Blood Gas Vent Mode CMV; Arterial Blood Gas Ventilator rate 15 /MIN
[2022-03-16] MEDS: WATER IVPB ×3 (06:05→23:38)
[2022-03-16] MEDS: DEXTROSE 5% IVPB ×3 (06:05→23:38)
[2022-03-16] MEDS: ACYCLOVIR SODIUM IVPB ×3 (06:05→23:38)
[2022-03-16 06:39] LABS: Hematocrit 28.5 % (42.0-52.0); Hemoglobin 9.9 g/dL (14.0-18.0); Mean Corpuscular HGB Conc 34.7 g/dl (32-36); Mean Corpuscular Hemoglobin 30.4 pg (26-34); Mean Corpuscular Volume 87.4 fl (80-100); Mean Platelet Volume 10.5 fl (7.4-10.4); Platelet Count Result 196 k/mm3 (150-375); Red Blood Count 3.26 M/mm3 (4.6-6.20); Red Cell Distribution Width 13.2 % (11.5-14.5); White Blood Count 7.4 K/mm3 (4.5-10.0)
[2022-03-16 06:52] LABS: Alanine Aminotransferase 28 U/L (6-50); Albumin Level 3.5 g/dL (3.5-5.1); Alkaline Phosphatase 41 U/L (38-126); Anion Gap 10 mmol/L (8-16); Aspartate Amino Transferase 72 U/L (17-59); Bilirubin,Total 0.2 mg/dL (0.2-1.3); Blood Urea Nitrogen 7 mg/dL (9-20); Calcium 8.3 mg/dL (8.4-10.2); Carbon Dioxide 21 mmol/L (22-30); Chloride 109 mmol/L (98-107); Estimated CRCL calculation 128 ml/min; Estimated Glomerular Filt Rate > 60; Glucose 159 mg/dL (65-110); Magnesium 1.8 mg/dL (1.6-2.3); Phosphorus 2.3 mg/dL (2.5-4.5); Potassium 3.6 mmol/L (3.4-5.0); Sodium 140 mmol/L (137-145)
[2022-03-16 06:59] LABS: Vancomycin Trough 7.9 ug/mL (10.0-20.0)
[2022-03-16] MEDS: MINERAL OIL/WHITE PETROLATUM OINTMENT 1 APPLIC EACH EYE ×2 (08:23→21:26)
[2022-03-16] MEDS: ENOXAPARIN 40 MG/0.4 ML SYRINGE SUB-Q (08:23)
[2022-03-16] MEDS: OXcarbazepine 300 MG TABLET 600 MG PO ×2 (08:23→21:27)
[2022-03-16] MEDS: PANTOPRAZOLE SODIUM IV 40 MG VIAL IV PUSH ×2 (08:23→21:26)
[2022-03-16] MEDS: levETIRAcetam 1000MG/NACL100ML 1,000 MG/100 ML BAG 400 MG IVPB ×3 (08:35→20:41)
[2022-03-16] MEDS: POTASSIUM/PHOSPHORUS/SODIUM 1.5 GM PACKET 1 PACKET PO (09:24)
--- NOTE | 2022-03-16 09:28 | PM.IMPN ---
Progress Note: A&P Assessment and Plan (1) Acute respiratory failure: Code(s): J96.00 - Acute respiratory failure, unspecified whether with hypoxia or hypercapnia Status: Acute Assessment and Plan: Acute Respiratory failure secondary to status epilepticus. Continue full mechanical ventilation support to prevent hypoxemia/hypercarbia and end organ damage. Discussed with heat treat puller. Appreciate heat treat puller input. Vent management per heat treat puller. (2) Status epilepticus: Code(s): G40.901 - Epilepsy, unspecified, not intractable, with status epilepticus Status: Acute Assessment and Plan: The patient had 8 to 10 seizures on the morning of admission. He was given multiple doses of lorazepam and Keppra 1gm in ED. Patient continued to have seizure activity and decision was made to intubate the patient for airway protection. Clinically does not appear to have seizures. He is sedated with propofol and midazolam. UDS positive for marijuana. Neurology consulted and appreciate their input. Remains on broad spectrum abx and anti-virals for possible meningitis. Follow up on culture results. Continue Keppra and Trileptal. Wean sedation today. Will educated the patient about abstaining from marijuana when able (3) Acute kidney injury: Code(s): N17.9 - Acute kidney failure, unspecified Status: Acute Assessment and Plan: Creatinine was 1.7 on arrival but has normalized with IV fluid rehydration. Likely secondary to hypovolemia and/or ATN fro seizures and/or rhabdomyolysis. Resolved. Continue IV fluids as his total CK is elevated. (4) Metabolic acidosis: Code(s): E87.20 - Acidosis, unspecified Status: Acute Assessment and Plan: Secondary to seizure activity. Lactic acid level has improved with IV fluids. Serum bicarb is improved and anion gap has closed. (5) Respiratory syncytial virus: Code(s): B33.8 - Other specified viral diseases Status: Acute Assessment and Plan: Influenza and COVID negative. Glynn spot negative. GAStrept culture negative. RSV has returned positive. Supportive care. (6) Hematemesis: Code(s): K92.0 - Hematemesis Status: Acute Assessment and Plan: Report of hematemesis in the ED which has cleared. He has a significant drop in his hemoglobin from 15.6 on admission to 9.9 today. CXR clear so doubt pulmonary hemorrhage. He is on Protonix. Stool Hemoccult ordered. Monitor and transfuse as needed. (7) Fever: Code(s): R50.9 - Fever, unspecified Status: Acute Assessment and Plan: The patient spiked a fever to 102.9? about 2 hours after he arrived. Related to the seizures and/or RSV and/or meningitis/encephalitis. CSF noted. CSF Cx NGTD. BCx NGTD. Continue with antibiotics and antivirals (8) Rhabdomyolysis: Code(s): M62.82 - Rhabdomyolysis Status: Acute Assessment and Plan: Elevated total CK likely secondary to seizures. Continue IV fluids. Monitor CK level Plan DVT prophylaxis - Lovenox Stress ulcer prophylaxis -IV PPI Nutrition -start Tube Feeds Code Status - Full Code Subjective Date/time seen: 03/16/22 09:28 Interval history: 31yo male with hx of seizure here for acute seizure. Assuming care. Chart reviewed. Patient intubated and sedated. Tolerating tube feedings. On minimal vent settings. Review of Systems Review of Systems: ROS unobtainable: Yes unobtainable due to endotracheal tube Exam Narrative: AF 97.8 118/65 84 15 100% MV Gen - intubated and sedated HEENT - dysconjugate gaze. pupils reactive. ETT and NGT secured Chest - clear anteriorly and in the flanks CV - RRR S1/S2. Tele showing no significant dysrhythmias Abd - Soft, +BS Ext - No pedal edema Neuro - no clonus. no hyperreflexia. poor tone. pupils reacitve. Psych - unable to assess Skin - facial diaphoresis Objective Data Vital Signs Vital Signs: Vital Signs
[2022-03-16 10:37] LABS: Creatine Kinase 2613 U/L (55-170)
--- NOTE | 2022-03-16 12:06 | PCNFU ---
Nutrition Follow-Up Complete: Inadequate protein energy needs from tube feeding related to mechanical ventilation as evidenced by tube feeding order meeting aboout 60% estimated energy requirements; need for full tube feeding. Goal: Tolerate tube feeding at goal rate Patient is progressing towards goal. We will continue current goal. Pt current nutrition is Vital AF 1.2 at 60 ml/hr. Nutrition recommendation: goal rate at 75 ml/hr Last recorded weight is 67.7 kg, up from 66.1 kg on admit. Bowel Motility:No BM reported. Labs Reviewed:Glu 159, PO4 2.3, Ca 8.3, Hct 28.5,Hgb 9.9 Meds Noted:Vancomycin, Decadron, Lovenox, Versed Skin: WNL Additional Notes: Patient remains on mechanical vent and tube feedings of Vital AF 1.2 at 60ml/hr at this time. Plans for Propofol to discontinue. Goal rate of tube feedings of 75 ml/hr providing 1980 kcals/124 gms protein/1338 ml water. Free water flush 30 ml q 4 hours. Tube feedings meeting 89% kcal needs and 100% protein needs. Monitor labs, plan of care, tube feeding tolerance Follow daily in ICU rounds. Reassess Tuesday and Tuesday per policy
[2022-03-16 13:39] LABS: Glucose Point of Care 138 mg/dl (65-105)
--- NOTE | 2022-03-16 14:08 | WPDINTPN ---
Progress Note: A&P Assessment and Plan (1) Acute respiratory failure: Code(s): J96.00 - Acute respiratory failure, unspecified whether with hypoxia or hypercapnia Status: Acute Assessment and Plan: Acute Respiratory failure secondary to status epilepticus, altered mental status, and a protection Continue full mechanical ventilation support to prevent hypoxemia/hypercarbia and end organ damage. ABG and vent settings reviewed Chest x-ray reviewed -withdraw OG tube by 5 cm . Low tidal volume ventilation strategy to prevent volutrauma (2) Acute kidney injury: Code(s): N17.9 - Acute kidney failure, unspecified Status: Acute Assessment and Plan: Likely secondary to hypovolemia and rhabdomyolysis Improving with IV fluids Electrolytes acceptable Monitor urine output electrolytes and creatinine Replace low potassium (3) Metabolic acidosis: Code(s): E87.20 - Acidosis, unspecified Status: Acute Assessment and Plan: Secondary to acute kidney injury and rhabdomyolysis Improving Monitor (4) Status epilepticus: Code(s): G40.901 - Epilepsy, unspecified, not intractable, with status epilepticus Status: Acute Assessment and Plan: Patient has history of seizures and presented with status epilepticus Currently sedated with Versed and propofol Increased Keppra, continue oxcarbazepine Appreciate Neurology evaluation and recommendation, will discuss with Neurology regarding antibiotic Obtain EEG (5) RSV (respiratory syncytial virus infection): Code(s): B33.8 - Other specified viral diseases Status: Acute Assessment and Plan: Symptomatic treatment (6) Hematemesis: Code(s): K92.0 - Hematemesis Status: Acute Assessment and Plan: There was some report of hematemesis in the ED but which he tube suction has been clear He did had drop in his hemoglobin but did receive IV fluids which could explain IV PPI q.12 hours Check Stool Hemoccult (7) Fever: Code(s): R50.9 - Fever, unspecified Status: Acute Assessment and Plan: Patient was febrile in the ER. 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 Gram stain cultures did not show any organisms, cultures are pending HSV PCR has been ordered and is pending Will discuss with neurology regarding discontinuing antibiotics and acyclovir (8) Rhabdomyolysis: Code(s): M62.82 - Rhabdomyolysis Status: Acute Assessment and Plan: Likely secondary to seizures Continue IV fluids CK levels trending down Plan DVT prophylaxis -continue Lovenox Stress ulcer prophylaxis -IV PPI q.12 hours Nutrition -tolerating tube feeds Code Status - Full Code Total Critical Care Time - 35 minutes Due to a high probability of clinically significant, life threatening deterioration, the patient required my highest level of preparedness to intervene emergently and I personally spent this critical care time directly and personally managing the patient. This critical care time included obtaining a history; examining the patient; pulse oximetry; ordering and review of studies; arranging urgent treatment with development of a management plan; evaluation of patient's response to treatment; frequent reassessment; and discussions with other providers. It was exclusive of separately billable procedures and treating other patients and teaching time. Please see Assessment and Plan section and the rest of the note for further information on patient assessment and treatment Subjective Date/time seen: 03/16/22 14:08 Interval history: 31yo male with hx of seizure, presented the ED on
[2022-03-16] MEDS: PROPOFOL IV EMULSION 100 ML 13.88 MG IV CONT (14:39)
--- NOTE | 2022-03-16 14:42 | WPDGIPROGNO ---
Progress Note: A&P Assessment and Plan (1) Hematemesis: Code(s): K92.0 - Hematemesis Status: Acute Assessment and Plan: no more episode since admission in fact NGT is ok, tolerating tube feeding noted drop in h/h but after given iv fluids, probably hemoconcentrated/dehydration no egd unless signs of bleeding iv protonix will follow from afar (2) Acute respiratory failure: Code(s): J96.00 - Acute respiratory failure, unspecified whether with hypoxia or hypercapnia Status: Acute Assessment and Plan: still intubated (3) Status epilepticus: Code(s): G40.901 - Epilepsy, unspecified, not intractable, with status epilepticus Status: Acute Assessment and Plan: on meds (4) RSV (respiratory syncytial virus infection): Code(s): B33.8 - Other specified viral diseases Status: Acute (5) Fever: Code(s): R50.9 - Fever, unspecified Status: Acute (6) Rhabdomyolysis: Code(s): M62.82 - Rhabdomyolysis Status: Acute Assessment and Plan: improving, from seizures (7) Acute kidney injury: Code(s): N17.9 - Acute kidney failure, unspecified Status: Acute Assessment and Plan: treated and resolved (8) Metabolic acidosis: Code(s): E87.20 - Acidosis, unspecified Status: Acute Subjective Date/time seen: 03/16/22 14:42 Interval history: NGT in place and tolerating tube feeding at goal, no report of vomiting or signs of GIB, still intubated Review of Systems Review of Systems: All systems reviewed & are unremarkable except as noted in HPI and below Exam Narrative: General: Pt is sedated, intubated and on mechanical ventilation Lungs/Chest: Trachea central Coarse BS B/L, No crackles or wheezing. Cardiac: RRR. Normal S1 S2. No murmurs Circulation: Pedal pulses are intact and symmetrical. Abdomen: Decreased bowel sounds. Obese. Soft. NT. ND. Extremities: No clubbing, cyanosis or edema. Warm : Flanagan in place Neurologic: Unable to assess due to sedation. Moves all 4 extremities to painful stimuli. PERRL HEENT: NGt in place Objective Data Vital Signs Vital Signs: Vital Signs - 24 hr 03/15/22 15:56 03/15/22 17:06 03/15/22 17:40 Temperature Pulse Rate 93 93 78 Respiratory Rate 15 15 Blood Pressure Pulse Oximetry 100 Oxygen Delivery Mechanical Ventilation Fraction of Inspired Oxygen 40 03/15/22 16:00 03/15/22 16:00 03/15/22 16:00 Temperature 97.1 F L Pulse Rate 95 78 Respiratory Rate 15 Blood Pressure 96/66 L Pulse Oximetry 100 Oxygen Delivery Fraction of Inspired Oxygen 40 03/15/22 16:00 03/15/22 18:00 03/15/22 18:12 Temperature Pulse Rate 76 76 76 Respiratory Rate 15 15 Blood Pressure Pulse Oximetry 100 Oxygen Delivery Mechanical Ventilation Fraction of Inspired Oxygen 40 03/15/22 20:36 03/15/22 21:02 03/15/22 22:17 Temperature Pulse Rate 71 69 74 Respiratory Rate 15 15 Blood Pressure Pulse Oximetry 100 Oxygen Delivery Mechanical Ventilation Fraction of Inspired Oxygen 40 03/15/22 22:18 03/15/22 20:00 03/15/22 20:00 Temperature Pulse Rate 76 71 76 Respiratory Rate 15 15 Blood Pressure Pulse Oximetry 100 Oxygen Delivery Mechanical Ventilation Fraction of Inspired Oxygen 30 03/15/22 20:00 03/15/22 20:00 03/15/22 22:00 Temperature 97.8 F Pulse Rate 71 76 Respiratory Rate 17 Blood Pressure 113/64 Pulse Oximetry 100 Oxygen Delivery Fraction of Inspired Oxygen 30 03/15/22 23:06 03/15/22 23:05 03/16/22 00:00 Temperature 97.7 F Pulse Rate 76 80 88 Respiratory Rate 15 Blood Pressure 130/94 H Pulse Oximetry 100 100 Oxygen Delivery Mechanical Ventilation Fraction of Inspired Oxygen 30 03/16/22 00:00 03/16/22 00:00 03/16/22 00:00 Temperature 98.0 F Pulse Rate 76 88 Respiratory Rate 15 15 Blood Pressure 118/81 Pulse Oximetry 100 100 Oxygen De
[2022-03-16 17:59] LABS: Glucose Point of Care 144 mg/dl (65-105)
[2022-03-16] MEDS: PROPOFOL IV EMULSION 100 ML 17.85 MG IV CONT (21:24)
[2022-03-16 23:55] LABS: Glucose Point of Care 113 mg/dl (65-105)
[2022-03-17] VITALS (42 sets, daily range): BP systolic 107–131; BP diastolic 57–92; PULSE 62–99; RESP 14–19; TEMP 36.3–37.2; O2SAT 98–100
[2022-03-17] MEDS: LACTATED RINGERS 1,000 ML 150 ML IV CONT ×4 (00:42→19:21)
[2022-03-17] MEDS: PROPOFOL IV EMULSION 100 ML 17.85 MG IV CONT (02:05)
[2022-03-17 03:49] LABS: Hematocrit 28.4 % (42.0-52.0); Hemoglobin 9.9 g/dL (14.0-18.0); Mean Corpuscular HGB Conc 34.9 g/dl (32-36); Mean Corpuscular Hemoglobin 30.8 pg (26-34); Mean Corpuscular Volume 88.5 fl (80-100); Mean Platelet Volume 10.5 fl (7.4-10.4); Platelet Count Result 195 k/mm3 (150-375); Red Blood Count 3.21 M/mm3 (4.6-6.20); Red Cell Distribution Width 13.5 % (11.5-14.5); White Blood Count 12.9 K/mm3 (4.5-10.0)
[2022-03-17 04:12] LABS: Alanine Aminotransferase 38 U/L (6-50); Albumin Level 3.4 g/dL (3.5-5.1); Alkaline Phosphatase 47 U/L (38-126); Anion Gap 7 mmol/L (8-16); Aspartate Amino Transferase 79 U/L (17-59); Bilirubin,Total 0.2 mg/dL (0.2-1.3); Blood Urea Nitrogen 9 mg/dL (9-20); Carbon Dioxide 25 mmol/L (22-30); Chloride 107 mmol/L (98-107); Creatine Kinase 2575 U/L (55-170); Estimated CRCL calculation 146 ml/min; Estimated Glomerular Filt Rate > 60; Glucose 136 mg/dL (65-110); Magnesium 1.9 mg/dL (1.6-2.3); Phosphorus 3.1 mg/dL (2.5-4.5); Potassium 3.6 mmol/L (3.4-5.0); Sodium 139 mmol/L (137-145)
[2022-03-17] MEDS: levETIRAcetam 1000MG/NACL100ML 1,000 MG/100 ML BAG 400 MG IVPB ×3 (04:20→22:32)
[2022-03-17] MEDS: cefTRIAXone 2 GM in SODIUM CHLORIDE 0.9% IV 100 ML 200 ML IVPB ×2 (05:14→17:16)
[2022-03-17 05:15] LABS: Alveolar/Arterial O2 Gradient 48.8 mmHg; Base Excess ABG 1.8 mEq/l (+/-2.0); Carboxyhemoglobin 0.1 % THb (0-2.0); Fractional Inspired Oxygen 30 %; HCO3 ABG 24.9 mEq/l (22.0-26.0); Methemoglobin ABG 0.3 %THb (0-1.5); Oxygen Content ABG 15.4 %vol (16.0-22.0); Oxygen Saturation ABG 98.7 % (95.0-100.0); Oxyhemoglobin 97.1 % THb (90.0-100.0); PCO2 ABG 33.9 mmHg (35.0-45.0); PO2 ABG 125.3 mmHg (80.0-100.0); PO2 FiO2 Ratio Arterial Blood 4.18 %; Reduced Hemoglobin 2.5 %THb (0-5.0); Total Hemoglobin 11.1 g/dL (12.0-18.0); pH ABG 7.484 (7.350-7.450)
[2022-03-17 05:16] LABS: Arterial Blood Gas PEEP 5 cmH2O; Arterial Blood Gas Vent Mode CMV; Arterial Blood Gas Ventilator rate 15 /MIN; Device VENTILATOR; Modified Allen's Test Unable to perform; Site Drawn RIGHT RADIAL
[2022-03-17 05:17] LABS: Arterial Blood Gas Tidal Volume 400 ml
[2022-03-17] MEDS: DEXTROSE 5% IVPB ×3 (05:47→22:32)
[2022-03-17] MEDS: ACYCLOVIR SODIUM IVPB ×3 (05:47→22:32)
[2022-03-17] MEDS: WATER IVPB ×3 (05:47→22:32)
[2022-03-17] MEDS: PROPOFOL IV EMULSION 100 ML 15.86 MG IV CONT (06:25)
[2022-03-17 06:59] LABS: Thyroid Stimulating Hormone Reflex 0.519 uIU/mL (0.465-4.68)
[2022-03-17] MEDS: MIDAZOLAM HCL (*CRX) 2 MG/2 ML VIAL IV PUSH (07:37)
--- NOTE | 2022-03-17 07:59 | PC.NURSE ---
Neuro at bedside attempting to attach patient to EEG machine. Patient thrashing and squirming in bed. This RN and other staff are unable to control patient for testing. Dr. Luther notified and new orders to increase Propofol to 50mcg/kg/min. This RN increased Propofol and stayed bedside as Neuro attempted again to place electrodes on patient. This RN and staff still unable to control patient. New order from Dr. Luther to administer 2mg IVP of Versed and to restart Versed infusion at 2mg/hr, may increase as need to obtain appropriate level of sedation
[2022-03-17] MEDS: MIDAZOLAM 100MG/NS 100ML(*CRX) 100 MG/100 ML BAG IV CONT (08:05)
[2022-03-17] MEDS: MINERAL OIL/WHITE PETROLATUM OINTMENT 1 APPLIC EACH EYE ×2 (08:15→20:31)
[2022-03-17] MEDS: ENOXAPARIN 40 MG/0.4 ML SYRINGE SUB-Q (08:15)
[2022-03-17] MEDS: OXcarbazepine 300 MG TABLET 600 MG PO ×2 (08:15→20:31)
[2022-03-17] MEDS: PANTOPRAZOLE SODIUM IV 40 MG VIAL IV PUSH ×2 (08:15→20:31)
[2022-03-17 10:44] LABS: Triglycerides 77 mg/dL (<150)
--- NOTE | 2022-03-17 11:06 | WPDINTPN ---
Progress Note: A&P Assessment and Plan (1) Acute respiratory failure: Code(s): J96.00 - Acute respiratory failure, unspecified whether with hypoxia or hypercapnia Status: Acute Assessment and Plan: Acute Respiratory failure secondary to status epilepticus, altered mental status, and a protection Continue full mechanical ventilation support to prevent hypoxemia/hypercarbia and end organ damage. ABG and vent settings reviewed Chest x-ray reviewed -withdraw OG tube by 5 cm . Low tidal volume ventilation strategy to prevent volutrauma (2) Acute kidney injury: Code(s): N17.9 - Acute kidney failure, unspecified Status: Acute Assessment and Plan: Likely secondary to hypovolemia and rhabdomyolysis Improving with IV fluids Electrolytes acceptable Monitor urine output electrolytes and creatinine Replace low potassium (3) Metabolic acidosis: Code(s): E87.20 - Acidosis, unspecified Status: Acute Assessment and Plan: Secondary to acute kidney injury and rhabdomyolysis RESOLVED Monitor (4) Status epilepticus: Code(s): G40.901 - Epilepsy, unspecified, not intractable, with status epilepticus Status: Acute Assessment and Plan: Patient has history of seizures and presented with status epilepticus Currently sedated with Versed and propofol 03/16: Increased Keppra, continue oxcarbazepine Appreciate Neurology evaluation and recommendation, will discuss with Neurology regarding antibiotic -EEG to be on 03/17 (5) RSV (respiratory syncytial virus infection): Code(s): B33.8 - Other specified viral diseases Status: Acute Assessment and Plan: Symptomatic treatment (6) Hematemesis: Code(s): K92.0 - Hematemesis Status: Acute Assessment and Plan: There was some report of hematemesis in the ED but which he tube suction has been clear He did had drop in his hemoglobin but did receive IV fluids which could explain -hemoglobin is stable IV PPI q.12 hours Stool Hemoccult pending -appreciate GI following the patient, no more episodes of blood in NG tube, hemoglobin is stable, continue IV Protonix, no intervention at this time (7) Fever: Code(s): R50.9 - Fever, unspecified Status: Acute Assessment and Plan: Patient was febrile in the ER. 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 I answered all questions, he is aware that patient is going to get an EEG done today Code Status - Full Code Total Critical Care Time - 33 minutes Due to a high probability of clinically significant, life threatening deterioration, the patient required my highest level of preparedness to intervene emergently and I personally spent this critical care time directly and personally managing the patient. This critical care time included obtaining a history; examining the patient; pulse oximetry; ordering and review of studies; arranging urgent treatment with development of a management plan; evaluation of patient's response to treatment; frequent reassessment; and discussio
[2022-03-17] MEDS: PROPOFOL IV EMULSION 100 ML 19.83 MG IV CONT (11:37)
[2022-03-17 12:20] LABS: Glucose Point of Care 108 mg/dl (65-105)
--- NOTE | 2022-03-17 12:31 | PCFNICU ---
ICU Rounding Note: Pt current nutrition is Vital AF 1.2 at 75 ml/hr. Last recorded weight is 67 kg Bowel Motility:No Bm reported. Labs Reviewed:Glu 136, Cr 0.6, Alb 3.4,Hgb 9.9,Hct 28.4 Meds Noted:Propofol at 19.83 ml/bb=278 kcals,Versed, Vancomycin, Decadron,Lovenox,Keppra Skin: WNL Additional Notes: Patient remains on mechanical vent and tube feedings of Vital AF 1.2 at 75 ml/hr. Propofol had been increased overnight to 19.83 ml/hr. Current tube feeding is providing 1980 kcals/124 gms protein/1338 ml water. Free water flush 30 ml q 4 hours. If Propofol continues at current rate recommend decreasing tube feedings to 65 ml/hr. EEG ordered for today. Monitoring: Monitor labs, plan of care, tube feeding tolerance Follow daily in ICU rounds. Reassess Tuesday and Tuesday per policy.
[2022-03-17] MEDS: dexmedeTOMIDine 400 MCG/100 ML 400 MCG/100 ML BAG 6.7 MCG IV CONT (14:43)
[2022-03-17 17:35] LABS: Glucose Point of Care 129 mg/dl (65-105)
[2022-03-17] MEDS: PROPOFOL IV EMULSION 100 ML 11.9 MG IV CONT ×2 (17:46→23:19)
[2022-03-17 19:59] LABS: Vancomycin Trough 6.8 ug/mL (10.0-20.0)
[2022-03-17 23:47] LABS: Glucose Point of Care 184 mg/dl (65-105)
[2022-03-18] VITALS (23 sets, daily range): BP systolic 128–166; BP diastolic 78–96; PULSE 60–93; RESP 13–18; TEMP 36.4–37.7; O2SAT 98–100
[2022-03-18] MEDS: dexmedeTOMIDine 400 MCG/100 ML 400 MCG/100 ML BAG 6.7 MCG IV CONT (00:17)
[2022-03-18] MEDS: LACTATED RINGERS 1,000 ML 150 ML IV CONT (02:01)
[2022-03-18 04:40] LABS: Hematocrit 31.4 % (42.0-52.0); Hemoglobin 10.5 g/dL (14.0-18.0); Mean Corpuscular HGB Conc 33.4 g/dl (32-36); Mean Corpuscular Hemoglobin 30.7 pg (26-34); Mean Corpuscular Volume 91.8 fl (80-100); Mean Platelet Volume 10.8 fl (7.4-10.4); Platelet Count Result 210 k/mm3 (150-375); Red Blood Count 3.42 M/mm3 (4.6-6.20); Red Cell Distribution Width 13.5 % (11.5-14.5); White Blood Count 9.5 K/mm3 (4.5-10.0)
[2022-03-18 04:56] LABS: Alanine Aminotransferase 35 U/L (6-50); Albumin Level 3.3 g/dL (3.5-5.1); Alkaline Phosphatase 48 U/L (38-126); Anion Gap 9 mmol/L (8-16); Aspartate Amino Transferase 59 U/L (17-59); Bilirubin,Total 0.1 mg/dL (0.2-1.3); Blood Urea Nitrogen 11 mg/dL (9-20); Calcium 8.1 mg/dL (8.4-10.2); Carbon Dioxide 26 mmol/L (22-30); Chloride 104 mmol/L (98-107); Creatine Kinase 1194 U/L (55-170); Estimated CRCL calculation 146 ml/min; Estimated Glomerular Filt Rate > 60; Glucose 155 mg/dL (65-110); Magnesium 1.9 mg/dL (1.6-2.3); Phosphorus 3.1 mg/dL (2.5-4.5); Potassium 3.5 mmol/L (3.4-5.0); Sodium 139 mmol/L (137-145)
[2022-03-18] MEDS: cefTRIAXone 2 GM in SODIUM CHLORIDE 0.9% IV 100 ML 200 ML IVPB ×2 (05:09→18:16)
[2022-03-18] MEDS: levETIRAcetam 1000MG/NACL100ML 1,000 MG/100 ML BAG 400 MG IVPB ×3 (05:10→21:37)
[2022-03-18 05:53] LABS: Alveolar/Arterial O2 Gradient 52.2 mmHg; Base Excess ABG 3.3 mEq/l (+/-2.0); Carboxyhemoglobin 0.3 % THb (0-2.0); Fractional Inspired Oxygen 30 %; HCO3 ABG 27.7 mEq/l (22.0-26.0); Methemoglobin ABG 0.3 %THb (0-1.5); Oxygen Content ABG 17.5 %vol (16.0-22.0); Oxygen Saturation ABG 98.3 % (95.0-100.0); Oxyhemoglobin 96.9 % THb (90.0-100.0); PCO2 ABG 41.1 mmHg (35.0-45.0); PO2 ABG 113.4 mmHg (80.0-100.0); PO2 FiO2 Ratio Arterial Blood 3.78 %; Reduced Hemoglobin 2.5 %THb (0-5.0); Total Hemoglobin 12.7 g/dL (12.0-18.0); pH ABG 7.446 (7.350-7.450)
[2022-03-18 05:55] LABS: Device VENTILATOR; Modified Allen's Test Pass; Site Drawn RIGHT RADIAL
[2022-03-18 05:56] LABS: Arterial Blood Gas PEEP 5 cmH2O; Arterial Blood Gas Tidal Volume 400 ml; Arterial Blood Gas Vent Mode CMV; Arterial Blood Gas Ventilator rate 14 /MIN
[2022-03-18] MEDS: DEXTROSE 5% IVPB ×3 (06:17→21:37)
[2022-03-18] MEDS: WATER IVPB ×3 (06:17→21:37)
[2022-03-18] MEDS: ACYCLOVIR SODIUM IVPB ×3 (06:17→21:37)
[2022-03-18] MEDS: PANTOPRAZOLE SODIUM IV 40 MG VIAL IV PUSH ×2 (08:11→20:34)
[2022-03-18] MEDS: POTASSIUM CHLORIDE 20 MEQ PACKET (FOR LIQUID) 40 MEQ FEED TUBE (08:11)
[2022-03-18] MEDS: OXcarbazepine 300 MG TABLET 600 MG PO ×2 (08:11→20:34)
[2022-03-18] MEDS: MAGNESIUM SULF 2 GM/WATER 50ML 2 GM/50 ML BAG IVPB (08:11)
[2022-03-18] MEDS: ENOXAPARIN 40 MG/0.4 ML SYRINGE SUB-Q (08:11)
[2022-03-18] MEDS: LACTATED RINGERS 1,000 ML 75 ML IV CONT (08:12)
[2022-03-18] MEDS: MINERAL OIL/WHITE PETROLATUM OINTMENT 1 APPLIC EACH EYE (08:12)
--- NOTE | 2022-03-18 08:25 | PC.NURSE ---
Sedation rates changed per Dr. Luther's order. Stop Propofol infusion. Increase Precedex to 1mcg/kg/hr.
[2022-03-18] MEDS: dexmedeTOMIDine 400 MCG/100 ML 400 MCG/100 ML BAG 20.1 MCG IV CONT (09:10)
--- NOTE | 2022-03-18 09:38 | PC.NURSE ---
Precedex rate changed per Dr. Luther's order
--- NOTE | 2022-03-18 11:41 | WPDNEUROLOGY ---
Neurology EEG Report General Information Date of Study: 03/17/22 TEST EEG DIAGNOSIS seizures CONDITION OF RECORDING unresponsive as the patient is sedated EEG NUMBER [id number] CLINICAL HISTORY patient came in to the hospital following several seizures. Subsequently he was intubated and sedated. And at present patient remains heavily sedated on propofol and Versed. EEG DESCRIPTION Bihemispheric low to medium voltage 123 S per 2nd delta activity seen admixed with movement artifact. Bilateral symmetrical sleep activity seen during sleep admixed with background rhythm that is delta activity. Non paroxysmal, nonfocal, nonlateralizing. IMPRESSION abnormal record due to the absence of the normal background rhythm , which could be related to the heavy sedation. There is no evidence of paroxysmal activity throughout the tracing. Clinical correlation recommended .
--- NOTE | 2022-03-18 11:42 | PCFNICU ---
ICU Rounding Note: Pt current nutrition is NPO. Last recorded weight is 67.8 kg, up from 66.1 kg on admit. Bowel Motility:No Bm reported. Labs Reviewed:Glu 155, Cr 0.6,Alb 3.3,Ca 8.1 Meds Noted:Vancomycin, Protonix, Keppra, Lovenox, Decadron. Skin: WNL Additional Notes: Patient has been extubated. NPO at this time for nutrition. Follow daily in ICU rounds. Reassess every 3 days per policy.
[2022-03-18 13:03] LABS: Immunochemical Fecal Occult Bl Positive (N)
[2022-03-18 13:04] LABS: IFOB Positive Control Positive
--- NOTE | 2022-03-18 13:43 | WPDINTPN ---
Progress Note: A&P Assessment and Plan (1) Acute respiratory failure: Code(s): J96.00 - Acute respiratory failure, unspecified whether with hypoxia or hypercapnia Status: Acute Assessment and Plan: Acute Respiratory failure secondary to status epilepticus, altered mental status, and a protection Continue full mechanical ventilation support to prevent hypoxemia/hypercarbia and end organ damage. ABG and vent settings reviewed Patient was placed on SBT, 5/5, tidal volumes were good, patient was more awake, propofol was discontinued, patient remained on Precedex -he did well for about 40 minutes, patient was extubated successfully (2) Acute kidney injury: Code(s): N17.9 - Acute kidney failure, unspecified Status: Acute Assessment and Plan: Likely secondary to hypovolemia and rhabdomyolysis Improving with IV fluids Electrolytes acceptable Monitor urine output electrolytes and creatinine Replace low potassium -creatinine has normalized, CK levels trending down well (3) Metabolic acidosis: Code(s): E87.20 - Acidosis, unspecified Status: Acute Assessment and Plan: Secondary to acute kidney injury and rhabdomyolysis RESOLVED Monitor (4) Status epilepticus: Code(s): G40.901 - Epilepsy, unspecified, not intractable, with status epilepticus Status: Acute Assessment and Plan: Patient has history of seizures and presented with status epilepticus Currently sedated with Versed and propofol 03/16: Increased Keppra, continue oxcarbazepine Appreciate Neurology evaluation and recommendation, will discuss with Neurology regarding antibiotic -EEG on 03/17: According the neurologist does no seizure activity, EEG was pretty normal (5) RSV (respiratory syncytial virus infection): Code(s): B33.8 - Other specified viral diseases Status: Acute Assessment and Plan: Symptomatic treatment (6) Hematemesis: Code(s): K92.0 - Hematemesis Status: Acute Assessment and Plan: There was some report of hematemesis in the ED but which he tube suction has been clear He did had drop in his hemoglobin but did receive IV fluids which could explain -hemoglobin is stable IV PPI q.12 hours Stool Hemoccult pending -appreciate GI following the patient, no more episodes of blood in NG tube, hemoglobin is stable, continue IV Protonix, no intervention at this time (7) Fever: Code(s): R50.9 - Fever, unspecified Status: Acute Assessment and Plan: Patient was febrile in the ER. 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 I answered all questions Code Status - Full Code Total Critical Care Time - 33 minutes Due to a high probability of clinically significant, life threatening deterioration, the patient required my highest level of preparedness to intervene emergently and I personally spent this critical care time directly and personally managing the patient. This critical care time included obtaining a history; examining the patient;
[2022-03-18] MEDS: ALPRAZolam (*CRX) 0.5 MG TABLET 1 MG PO ×2 (14:15→21:37)
[2022-03-18] MEDS: polyethylene glycoL 3350 17 GM POWD.PACK PO (14:15)
[2022-03-18 20:24] LABS: Vancomycin Trough 10.3 ug/mL (10.0-20.0)
[2022-03-19] VITALS (9 sets, daily range): BP systolic 100–136; BP diastolic 52–94; PULSE 60–110; RESP 14–19; TEMP 36.4–37.1; O2SAT 98–100
[2022-03-19] MEDS: HALOPERIDOL LACTATE 5 MG/ML VIAL IM (01:40)
[2022-03-19] MEDS: LACTATED RINGERS 1,000 ML 75 ML IV CONT ×2 (04:47→16:56)
[2022-03-19] MEDS: cefTRIAXone 2 GM in SODIUM CHLORIDE 0.9% IV 100 ML 200 ML IVPB (05:27)
[2022-03-19] MEDS: levETIRAcetam 1000MG/NACL100ML 1,000 MG/100 ML BAG 400 MG IVPB ×3 (05:28→21:48)
[2022-03-19 05:40] LABS: Hematocrit 34.4 % (42.0-52.0); Hemoglobin 11.6 g/dL (14.0-18.0); Mean Corpuscular HGB Conc 33.7 g/dl (32-36); Mean Corpuscular Hemoglobin 29.6 pg (26-34); Mean Corpuscular Volume 87.8 fl (80-100); Mean Platelet Volume 11.5 fl (7.4-10.4); Platelet Count Result 273 k/mm3 (150-375); Red Blood Count 3.92 M/mm3 (4.6-6.20); Red Cell Distribution Width 13.2 % (11.5-14.5); White Blood Count 12.3 K/mm3 (4.5-10.0)
[2022-03-19 05:49] LABS: Herpes Simplex Type 1 DNA PCR Not Detected (Not Detected); Herpes Simplex Type 2 DNA PCR Not Detected (Not Detected)
[2022-03-19] MEDS: WATER IVPB (06:22)
[2022-03-19] MEDS: ACYCLOVIR SODIUM IVPB (06:22)
[2022-03-19] MEDS: DEXTROSE 5% IVPB (06:22)
[2022-03-19 08:18] LABS: Alanine Aminotransferase 66 U/L (6-50); Albumin Level 3.9 g/dL (3.5-5.1); Alkaline Phosphatase 51 U/L (38-126); Anion Gap 11 mmol/L (8-16); Aspartate Amino Transferase 152 U/L (17-59); Bilirubin,Total 0.2 mg/dL (0.2-1.3); Blood Urea Nitrogen 11 mg/dL (9-20); Carbon Dioxide 29 mmol/L (22-30); Chloride 101 mmol/L (98-107); Estimated CRCL calculation 142 ml/min; Estimated Glomerular Filt Rate > 60; Glucose 92 mg/dL (65-110); Magnesium 1.9 mg/dL (1.6-2.3); Potassium 3.5 mmol/L (3.4-5.0); Sodium 141 mmol/L (137-145)
[2022-03-19 08:32] LABS: Creatine Kinase 5776 U/L (55-170)
--- NOTE | 2022-03-19 09:17 | PCNFU ---
Nutrition Follow-Up Complete: Inadequate protein energy needs from tube feeding related to mechanical ventilation as evidenced by tube feeding order meeting aboout 60% estimated energy requirements; need for full tube feeding. Goal: tolerate tube feeding at goal rate Patient has met goal. No new goal. Pt current nutrition is Regular diet. Last recorded weight is 65.1 kg Bowel Motility: No Bm reported-miralax is ordered. Labs Reviewed:Cr 0.6,Hct 34.4,Hgb 11.6 Meds Noted:Vancomycin, Keppra, LR. Skin: WNL Additional Notes:Patient eating breakfast today. Tolerating oral diet. Agree with regular diet order. No further nutritional interventions needs. Monitoring: will monitor for every 7 days.
[2022-03-19] MEDS: polyethylene glycoL 3350 17 GM POWD.PACK PO (10:00)
[2022-03-19] MEDS: OXcarbazepine 300 MG TABLET 600 MG PO ×2 (10:00→20:43)
[2022-03-19] MEDS: ENOXAPARIN 40 MG/0.4 ML SYRINGE SUB-Q (10:00)
[2022-03-19] MEDS: PANTOPRAZOLE SODIUM IV 40 MG VIAL IV PUSH ×2 (10:00→20:43)
--- NOTE | 2022-03-19 11:27 | WPDINTPN ---
Progress Note: A&P Assessment and Plan (1) Acute respiratory failure: Code(s): J96.00 - Acute respiratory failure, unspecified whether with hypoxia or hypercapnia Status: Acute Assessment and Plan: Acute Respiratory failure secondary to status epilepticus, altered mental status, and airway protection Patient extubated on 03/18 -started on cefepime is WBC count has gone up in his coarse breath sounds. (2) Acute kidney injury: Code(s): N17.9 - Acute kidney failure, unspecified Status: Acute Assessment and Plan: Likely secondary to hypovolemia and rhabdomyolysis Improving with IV fluids Electrolytes acceptable Monitor urine output electrolytes and creatinine Replace low potassium -creatinine has normalized, -CK level has gone up, will increase LR 100 mL/hour (3) Metabolic acidosis: Code(s): E87.20 - Acidosis, unspecified Status: Acute Assessment and Plan: Secondary to acute kidney injury and rhabdomyolysis RESOLVED Monitor (4) Status epilepticus: Code(s): G40.901 - Epilepsy, unspecified, not intractable, with status epilepticus Status: Acute Assessment and Plan: Patient has history of seizures and presented with status epilepticus Currently sedated with Versed and propofol 03/16: Increased Keppra, continue oxcarbazepine Appreciate Neurology evaluation and recommendation, will discuss with Neurology regarding antibiotic -EEG on 03/17: According the neurologist does no seizure activity, EEG was pretty normal (5) RSV (respiratory syncytial virus infection): Code(s): B33.8 - Other specified viral diseases Status: Acute Assessment and Plan: Symptomatic treatment (6) Hematemesis: Code(s): K92.0 - Hematemesis Status: Acute Assessment and Plan: There was some report of hematemesis in the ED but which he tube suction has been clear He did had drop in his hemoglobin but did receive IV fluids which could explain -hemoglobin is stable IV PPI q.12 hours Stool Hemoccult pending -appreciate GI following the patient, no more episodes of blood in NG tube, hemoglobin is stable, continue IV Protonix, no intervention at this time (7) Fever: Code(s): R50.9 - Fever, unspecified Status: Acute Assessment and Plan: Patient was febrile in the ER. 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 Gram stain cultures did not show any organisms, CSF cultures are negative, blood cultures are negative HSV PCR is negative, -fevers have resolved, all cultures have been negative, will discontinue ceftriaxone, Diflucan, dexamethasone, vancomycin (8) Rhabdomyolysis: Code(s): M62.82 - Rhabdomyolysis Status: Acute Assessment and Plan: Likely secondary to seizures Continue IV fluids CK levels increased, will keep monitoring Plan DVT prophylaxis -continue Lovenox Stress ulcer prophylaxis -IV PPI q.12 hours Nutrition -hold tube feeds for extubation Discussed with patient's father, Magen, updated with patient's condition and plan of care. I answered all questions Code Status - Full Code Total Critical Care Time - 31 minutes Patient will be transferred to medical floor Due to a high probability of clinically significant, life threatening deterioration, the patient required my highest level of preparedness to intervene emergently and I personally spent this critical care time directly and personally managing the patient. This critical care time included obtaining a history; examining the patient; pulse oximetry; ordering and review of studies; arranging urgent treatment with development of a manageme
--- NOTE | 2022-03-19 16:37 | PC.NURSE ---
Report given to Lu FIELD
--- NOTE | 2022-03-19 16:49 | PC.NURSE ---
This patient, Conrad Frye, was transferred to [facility] on 03/19/22 at 1645. Personal belongings sent with patient. Report given to Lu. Appropriate documentation sent with patient.
--- NOTE | 2022-03-19 16:49 | PC.NURSE ---
Patient received from ICU room 10 to room 253. Patient oriented to the room.
[2022-03-19] MEDS: ALPRAZolam (*CRX) 0.5 MG TABLET 1 MG PO (21:53)
[2022-03-19 22:25] LABS: Vancomycin Trough 5.5 ug/mL (10.0-20.0)
[2022-03-20 03:41] VITALS: BP 135/77; PULSE 70; RESP 16; TEMP 36.6; O2SAT 100
[2022-03-20] MEDS: LACTATED RINGERS 1,000 ML 100 ML IV CONT ×2 (05:08→16:29)
[2022-03-20] MEDS: levETIRAcetam 1000MG/NACL100ML 1,000 MG/100 ML BAG 400 MG IVPB (05:53)
[2022-03-20 05:54] LABS: Hematocrit 36.7 % (42.0-52.0); Hemoglobin 12.6 g/dL (14.0-18.0); Mean Corpuscular HGB Conc 34.3 g/dl (32-36); Mean Corpuscular Hemoglobin 29.9 pg (26-34); Mean Corpuscular Volume 87.2 fl (80-100); Mean Platelet Volume 10.4 fl (7.4-10.4); Platelet Count Result 292 k/mm3 (150-375); Red Blood Count 4.21 M/mm3 (4.6-6.20); White Blood Count 8.1 K/mm3 (4.5-10.0)
[2022-03-20 06:06] LABS: Alanine Aminotransferase 100 U/L (6-50); Albumin Level 4.1 g/dL (3.5-5.1); Alkaline Phosphatase 55 U/L (38-126); Anion Gap 10 mmol/L (8-16); Aspartate Amino Transferase 166 U/L (17-59); Bilirubin,Total 0.4 mg/dL (0.2-1.3); Blood Urea Nitrogen 11 mg/dL (9-20); Calcium 8.7 mg/dL (8.4-10.2); Carbon Dioxide 32 mmol/L (22-30); Chloride 99 mmol/L (98-107); Estimated CRCL calculation 124 ml/min; Estimated Glomerular Filt Rate > 60; Glucose 101 mg/dL (65-110); Phosphorus 4.7 mg/dL (2.5-4.5); Sodium 141 mmol/L (137-145)
[2022-03-20 06:20] LABS: Creatine Kinase 4618 U/L (55-170)
[2022-03-20 08:00] VITALS: BP 133/78; PULSE 66; RESP 16; TEMP 37.1; O2SAT 99
[2022-03-20] MEDS: PANTOPRAZOLE SODIUM IV 40 MG VIAL IV PUSH ×2 (08:41→21:22)
[2022-03-20] MEDS: ALPRAZolam (*CRX) 0.5 MG TABLET 1 MG PO ×2 (08:41→21:21)
[2022-03-20] MEDS: ENOXAPARIN 40 MG/0.4 ML SYRINGE SUB-Q (08:41)
[2022-03-20] MEDS: OXcarbazepine 300 MG TABLET 600 MG PO ×2 (08:41→21:21)
--- NOTE | 2022-03-20 10:16 | PM.IMPN ---
Progress Note: A&P Assessment and Plan (1) Acute respiratory failure: Code(s): J96.00 - Acute respiratory failure, unspecified whether with hypoxia or hypercapnia Status: Acute Assessment and Plan: Acute Respiratory failure secondary to status epilepticus, altered mental status, and airway protection -started on cefepime is WBC count has gone up in his coarse breath sounds. (2) Metabolic acidosis: Code(s): E87.20 - Acidosis, unspecified Status: Acute Assessment and Plan: Secondary to acute kidney injury and rhabdomyolysis RESOLVED Monitor (3) Status epilepticus: Code(s): G40.901 - Epilepsy, unspecified, not intractable, with status epilepticus Status: Acute Assessment and Plan: Patient has history of seizures and presented with status epilepticus Will switch to p.o. Keppra, and oxcarbazepine Appreciate Neurology evaluation and recommendation, will discuss with Neurology regarding antibiotic -EEG on 03/17: According the neurologist does no seizure activity, EEG was pretty normal (4) RSV (respiratory syncytial virus infection): Code(s): B33.8 - Other specified viral diseases Status: Acute Assessment and Plan: Symptomatic treatment (5) Rhabdomyolysis: Code(s): M62.82 - Rhabdomyolysis Status: Acute Assessment and Plan: Likely secondary to seizures Continue IV fluids last CPK is 4600, potassium of 3 Plan DVT prophylaxis. GI prophylaxis. All records reviewed Discussed plan of care with the nursing staff and with the patient in detail. Answered all questions and concerns from the patient. All labs have been reviewed. Code status updated dictation may have been done utilizing a voice recognition system. Attempts have been made to correct errors. However, there may be uncorrected grammatical, spelling, and recognition errors present. Subjective Date/time seen: 03/20/22 10:16 Interval history: patient recently transferred from ICU to medical floor extubated and doing well Exam Narrative: GENERAL: Well appearing, well-nourished, non-toxic, in no acute distress. HEAD: Normocephalic, atraumatic. NECK: Supple. No adenopathy, no masses. RESPIRATORY: Airway patent, respirations nonlabored. Clear to auscultation bilaterally, no rales, rhonchi, wheezing. CARDIOVASCULAR: Regular rate and rhythm without murmurs, rubs, or gallops. Peripheral pulses 2+ and equal bilaterally. ABDOMINAL: Soft, nontender, nondistended, no hepatosplenomegaly. Normoactive BS. MUSCULOSKELETAL: no Epigastric and no hypochondrial tenderness SKIN: Warm, dry, normal color. No rashes. NEURO: A&O X3. Moves all extremities PSYCHIATRIC: Appropriate mood and affect. Normal interaction. Objective Data Vital Signs Vital Signs: Vital Signs - 24 hr 03/19/22 12:00 03/19/22 16:00 03/19/22 16:00 Temperature 36.6 C Pulse Rate 110 H 76 76 Respiratory Rate 18 Blood Pressure 119/74 Pulse Oximetry 98 Oxygen Delivery 03/19/22 20:16 03/19/22 20:00 03/19/22 23:34 Temperature 36.7 C 36.4 C Pulse Rate 70 91 Respiratory Rate 18 18 Blood Pressure 136/75 100/52 L Pulse Oximetry 100 100 Oxygen Delivery Room Air 03/20/22 03:41 03/20/22 08:00 Temperature 36.6 C 37.1 C Pulse Rate 70 66 Respiratory Rate 16 16 Blood Pressure 135/77 133/78 Pulse Oximetry 100 99 Oxygen Delivery Intake/Output Intake/Output: Intake & Output 03/17/22 03/18/22 03/19/22 03/20/22 23:59 23:59 23:59 23:59 Intake Total 7971.7 7914.0 2990 1930 Output Total 5950 7200 7400 1300 Balance 1.7 714.0 -4410 630 Meds/Results Medications: Active Medications Generic Name Dose Route Start Last Admin Trade Name Freq PRN Reason Stop Dose Admin Alprazolam 1 mg 03/18/22 13:36 03/20/22 08:41 Alprazolam (*Crx) 0.5 Mg Tablet PO 1 mg TID PRN Administration Anxiety Enoxaparin Sodium 40 mg 03/16/22 09:00 03/20/22 08:41 Enoxa
[2022-03-20] MEDS: POTASSIUM CHLORIDE 20 MEQ PACKET (FOR LIQUID) 40 MEQ PO (12:09)
[2022-03-20 16:00] VITALS: BP 125/73; PULSE 94; RESP 16; TEMP 37.2; O2SAT 99
[2022-03-20 19:37] VITALS: BP 128/78; PULSE 90; RESP 18; TEMP 36.3; O2SAT 99
[2022-03-20] MEDS: levETIRAcetam 500 MG TABLET PO (21:21)
[2022-03-21] MEDS: LACTATED RINGERS 1,000 ML 100 ML IV CONT (02:53)
[2022-03-21 03:25] VITALS: BP 123/80; PULSE 79; RESP 16; TEMP 36.2; O2SAT 100
[2022-03-21 08:29] LABS: Anion Gap 6 mmol/L (8-16); Blood Urea Nitrogen 13 mg/dL (9-20); Calcium 9.1 mg/dL (8.4-10.2); Carbon Dioxide 31 mmol/L (22-30); Chloride 100 mmol/L (98-107); Creatine Kinase 1350 U/L (55-170); Estimated CRCL calculation 124 ml/min; Estimated Glomerular Filt Rate > 60; Glucose 93 mg/dL (65-110); Sodium 137 mmol/L (137-145)
[2022-03-21] MEDS: PANTOPRAZOLE SODIUM IV 40 MG VIAL IV PUSH (09:07)
[2022-03-21] MEDS: POTASSIUM CHLORIDE 20 MEQ PACKET (FOR LIQUID) 40 MEQ PO (09:07)
[2022-03-21] MEDS: ENOXAPARIN 40 MG/0.4 ML SYRINGE SUB-Q (09:07)
[2022-03-21] MEDS: levETIRAcetam 500 MG TABLET PO (09:07)
[2022-03-21] MEDS: OXcarbazepine 300 MG TABLET 600 MG PO (09:07)
--- NOTE | 2022-03-21 09:53 | PM.DS ---
DS: Admitting Diagnosis Discharge Date 03/21/2022 Admitting Diagnosis seizure DS: Summary Hospital Course Hospital Course: Conrad Frye is a 31 year old male with history of seizure disorder who presented to the emergency department via EMS from home for multiple seizure and altered mental status.? In ED patient was combative and confused.? Patient was given additional sedation.? Per ED physician he had 1 episode of seizure in the ER.? Patient not compliant with his medications at home.? Per family patient ceased 8-10 times before coming to the hospital.? He is a disabled and per family does not use is drugs. In ED he was treated with Keppra and Ativan.? Head CT was unremarkable.? Pertinent labs on arrival include a white blood cell count 22.9, carbon dioxide 8, anion gap 33, BUN 8, creatinine 1.70, lactic acid 3.4, and CK 322. CT of the head and neck did not show any acute finding and his chest x-ray was unremarkable.? Later in the ER he spiked a temperature to 102.9? Fahrenheit, lumbar puncture was performed, and he was started on empiric antibiotics and antivirals for possible meningitis and/or encephalitis. ?While in the emergency department he continued to have periods where he was combative and appeared postictal followed by periods of unresponsiveness.? He was given additional sedation and later he became unresponsive with fluttering of the eyes. Due to concerns for status epilepticus the decision was made to intubate the patient and patient was intubated and placed on mechanical ventilation.? He was transferred to ICU for further evaluation management. -03/14/2022: Patient had LP done which showed few nucleated cell -Glucose was slightly elevated at 94 and total protein was slightly elevated at 64 He is currently on empiric antibiotics meningitis and HSV encephalitis Gram stain cultures did not show any organisms, CSF cultures are negative, blood cultures are negative HSV PCR is negative, -fevers have resolved, all cultures have been negative, will discontinue ceftriaxone, Diflucan, dexamethasone, vancomycin Patient extubated on 03/18 -started on cefepime. no source of infection identified. dc Abx. Acute kidney injury: Likely secondary to hypovolemia and rhabdomyolysis. HERBERTH has resolved With IV fluids. patient also had rhabdomyolysis likely from seizures. CK is trending down. Patient is eating and drinking well. Status epilepticus: he was started on Keppra, continue oxcarbazepine Appreciate Neurology evaluation and recommendation, will discuss with Neurology regarding antibiotic -EEG? on 03/17:? According the neurologist does no seizure activity, EEG was pretty normal at this time patient is clinically stable and is being discharged home Time Spent with Patient Time attestation: Total time spent providing and/or coordinating discharge services: Exam Narrative: GENERAL: Well appearing, well-nourished, non-toxic, in no acute distress. HEAD: Normocephalic, atraumatic. NECK: Supple. No adenopathy, no masses. RESPIRATORY: Airway patent, respirations nonlabored. Clear to auscultation bilaterally, no rales, rhonchi, wheezing. CARDIOVASCULAR: Regular rate and rhythm without murmurs, rubs, or gallops. Peripheral pulses 2+ and equal bilaterally. ABDOMINAL: Soft, nontender, nondistended, no hepatosplenomegaly. Normoactive BS. MUSCULOSKELETAL: no Epigastric and no hypochondrial tenderness SKIN: Warm, dry, normal color. No rashes. NEURO: A&O X3. Moves all extremities PSYCHIATRIC: Appropriate mood and affect. Normal interaction. DS: Data Data Completed and Pending Labs on day of discharge: Labs from last 24 hours 03/21/22 08:11 Sodium 137 Potassium 4.0 Chloride 100 Carbon Dioxide 31 H Anion Gap 6 L BUN 13 Creatinine 0.70 Estim Creat Clear Calc 124 Estimated GFR > 60 Glucose 93 Calcium 9.1 Total Creatine Kinase 1350 H Discharge Plan Discharge Consulting providers: Sherie Fernández
== END 2022-03-21 12:44 | disposition home or self-care (01) | DRG 100 ==
LOC: ANHED 19:54 → ANHICU 20:14 → ANH2MED 03-19 16:42
PROVIDERS: Internal Medicine; Physician Assistant; Admitting Provider Family Medicine; Emergency Provider Emergency Medicine; Visit Provider Hospitalist
DX: G40.901 Epilepsy, unspecified, not intractable, with status epilepticus (principal); J96.00 Acute respiratory failure, unspecified whether with hypoxia or hypercapnia; N17.9 Acute kidney failure, unspecified; E87.21 Acute metabolic acidosis; M62.82 Rhabdomyolysis; K92.0 Hematemesis; F41.9 Anxiety disorder, unspecified; F32.A Depression, unspecified; Z79.899 Other long term (current) drug therapy; R50.9 Fever, unspecified; B33.8 Other specified viral diseases; E86.1 Hypovolemia; Z20.822 Contact with and (suspected) exposure to COVID-19
CPT/HCPCS: 36415; 36600; 62270; 70450; 71045; 72125; 74177; 80048; 80053; 80202; 80307; 81001; 82274; 82375; 82550; 82805; 82945; 82948; 83036; 83050; 83605; 83735; 84100; 84145; 84157; 84443; 84478; 85014; 85018; 85025; 85027; 85610; 85652; 85730; 86140; 86308; 87040; 87070; 87081; 87529; 87637; 87880; 89051; 93005; 94002; 94003; 95816; 96361; 96365; 96367; 96375; 99285; A9270; C9113; J0131; J0133; J0330; J0692; J0696; J1100; J1630; J1650; J1953; J2060; J2250; J2704; J3370; J3475; J7030; J7060; J7120; Q9967

== ENCOUNTER 2022-05-23 10:48 | Emergency (ER) | payer OTHER, SELFPAY ==
[2022-05-23 10:27] VITALS: BP 117/57; PULSE 77; RESP 18; TEMP 36.7; O2SAT 98
[2022-05-23 10:34] VITALS: O2SAT 98
[2022-05-23 10:35] VITALS: PULSE 82; O2SAT 98
[2022-05-23] MEDS: levETIRAcetam 1000MG/NACL100ML 1,000 MG/100 ML BAG 400 MG IVPB (11:48)
[2022-05-23] MEDS: carBAMazepine 200 MG TABLET 600 MG PO (11:54)
[2022-05-23 11:55] VITALS: BP 108/72; PULSE 88; RESP 16; O2SAT 100
--- NOTE | 2022-05-23 12:44 | ED.SEIZURE ---
HPI - Seizure General Chief Complaint: Seizure Stated Complaint: SZ Time Seen by Provider: 05/23/22 10:58 History of Present Illness HPI Narrative: Patient is a 31-year-old male who presents ER status post seizure x2. Occurred this morning. He has not had his home antiepileptics for 2 days. No fevers or chills or sweats. No complaints of injury. Patient did bite his tongue. Reports he was smoking marijuana this morning. Seizure History: Yes Related Data Home Medications Medication Instructions Recorded Confirmed oxcarbazepine 600 mg tablet 600 mg PO BID 03/14/22 03/14/22 Allergies Allergy/AdvReac Type Severity Reaction Status Date / Time No Known Allergies Allergy Unverified 05/23/22 10:42 Review of Systems Constitutional: Constitutional: Denies chills and Denies fever(s) ENT: Denies nasal congestion and Denies sore throat Cardiovascular: Cardiovascular: Denies chest pain, Denies rapid heart rate and Denies radiating jaw, neck or arm pain Respiratory: Respiratory: Denies cough and Denies dyspnea Gastrointestinal: Gastrointestinal: Denies abdominal pain, Denies nausea and Denies vomiting Neurologic: Denies headache(s), Denies focal weakness and Denies numbness Comments: Seizure PMFSH Past Medical History Medical History Anxiety Depression Pseudoseizure Seizure disorder Surgical History Surgical History Surgical history unknown Family History Family History Other Family history unknown Social History Social History Social History: Surrogate medical decision maker: Code status: Full code. Smoking status: Unknown if ever smoked Alcohol intake: unknown Substance use: unknown Substance use type: marijuana Additional living arrangements comments: The patient lives with his father in [place]. Additional occupation/education comments: Disabled. Spiritual care concerns: No Exam Narrative: GENERAL: Well-appearing, well-nourished, and in no acute distress. HEAD: Normocephalic, atraumatic. EYES: PERRL and EOMI. ENT: Mucous membranes moist. Tongue biting noted bilaterally and right lower lip. CHEST: Clear to auscultation. No respiratory distress. HEART: Regular rate and rhythm. Normal peripheral pulses. ABDOMEN: Soft, nontender, nondistended. EXTREMITIES: Normal range of motion. No edema. NEURO: Alert and oriented x3. PSYCH: Normal mood and affect. Course Course Emergency Course: Patient resting comfortably and seizure-free. Loaded with IV Keppra. Vital Signs Vital signs: Vital Signs Temperature 98.0 F 05/23/22 10:27 Pulse Rate 77 05/23/22 10:27 Respiratory Rate 18 05/23/22 10:27 Blood Pressure 117/57 L 05/23/22 10:27 Pulse Oximetry 98 05/23/22 10:27 Oxygen Delivery Room Air 05/23/22 10:27 Temperature 98.0 F 05/23/22 10:27 Pulse Rate 76 05/23/22 16:01 Respiratory Rate 19 05/23/22 16:01 Blood Pressure 113/75 05/23/22 16:01 Pulse Oximetry 100 05/23/22 16:01 Oxygen Delivery Room Air 05/23/22 10:35 Discharge Plan Discharge Clinical Impression: Seizure Patient Disposition: Home, Self-Care Condition: Stable Instructions: Recurrent Seizures in Adults (ED) Additional Instructions: Stay compliant with your epilepsy medications he did not have seizures. Return the ER if you have fever over 100.4 ?F, you cannot keep down food or water, you have additional concerns. If you do miss a dose of your medication do not smoke marijuana as it may lower the threshold for you to have a seizure resulting in a situation like today. You should not drive motor vehicle until your 6-month seizure-free and cleared by neurologist. Prescriptions: New levetiracetam [Keppra] 500 mg tabl
[2022-05-23 14:32] VITALS: BP 117/71; PULSE 75; RESP 18; O2SAT 100
[2022-05-23 16:01] VITALS: BP 113/75; PULSE 76; RESP 19; O2SAT 100
== END 2022-05-23 16:02 | disposition home or self-care (01) ==
PROVIDERS: Emergency Provider Emergency Medicine
DX: G40.909 Epilepsy, unspecified, not intractable, without status epilepticus (principal)
CPT/HCPCS: 96365; 99284; A9270; J1953

== ENCOUNTER 2022-08-22 04:07 | Inpatient (IN) | payer OTHER, SELFPAY ==
[2022-08-22] VITALS (42 sets, daily range): BP systolic 99–154; BP diastolic 54–82; PULSE 56–122; RESP 12–25; TEMP 36.6–37.6; O2SAT 97–100; BMI 47.5
--- NOTE | ~2022-08-22 | XR_ITS ---
EXAMINATION: XR chest 1V portable INDICATION: Seizure TECHNIQUE: Portable AP chest at 0459 hours COMPARISON: 03/18/2022 FINDINGS: The lungs are free of acute opacities. No pleural effusion or pneumothorax. The cardiomedia stinal silhouette is normal. IMPRESSION: 1. No acute cardiopulmonary abnormality. Reviewed, dictated and finalized at location A.
--- NOTE | 2022-08-22 04:16 | PC.NURSE ---
pt started seizing at 0415 with shaking 4mg IM ativan given at 0418 suction started at 0417 HR 179, BP 160/90, RR 40 at 0418 18 guage on left AC 0419 4L O2 applied 0418 4 Grams kepra 0421 HR 121, 160/98, 16 RR 96% IV 18 Left wrist @ 0422 temperature 98.3 @0422 0424 VS Jr 94, O2 97, RR15, and BP 149/61 End tidal CO2 started at 0425 at 47 Rectal temperature at 0427 was 99.6 IVF given at 0432 VS @0433 HR 63, 98 SPO2, 32 End tidal, 19 RR, 154/81 BP EKG at [address] Paulson
[2022-08-22] MEDS: LORazepam INJ (*CRX) 2 MG/ML VIAL 4 MG IM (04:18)
--- NOTE | 2022-08-22 04:22 | ECG_ITS ---
Measurements Intervals [place] Rate: 61 P: 82 IN: 143 QRS: 93 QRSD: 96 T: 67 QT: 366 QTc: 369 Interpretive Statements SINUS RHYTHM WITH MARKED SINUS ARRHYTHMIA POSSIBLE LEFT ATRIAL ENLARGEMENT [-0.1mV P WAVE IN V1/V2] T-WAVE ABNORMALITY CONSIDER HYPERKALEMIA BORDERLINE RIGHT AXIS DEVIATION [QRS AXIS > 90] COMPARED TO ECG 03/14/2022 12:40:21 HEART RATE IS DECREASED Electronically Signed On 08-22-2022 7:51:52 CDT by Yuri Méndez M.D.
--- NOTE | 2022-08-22 04:24 | ED.GENADULT ---
HPI - General Adult General Chief complaint: Seizure Stated complaint: Seizure, N/V Time Seen by Provider: 08/22/22 04:09 History of Present Illness HPI narrative: 31-year-old male history of epilepsy and seizure. Per father, patient has been without his medications for the past several days. He says he usually gets the medications from the mail, but has been out. Today he has had 5 seizures prior to ED presentation. Father reports that prior to seizures he was in his usual state of health. In ED, patient with witnessed tonic-clonic seizure, foaming at the mouth patient. Patient turned to the side, suction aspiration, given for IM Ativan. Loaded with Keppra. Placed on nasal cannula, end-tidal, cardiopulmonary monitoring. ROS limited due to the condition Past medical history: Epilepsy Medication: Keppra Allergies: No known drug allergies Related Data Home Medications Medication Instructions Recorded Confirmed oxcarbazepine 600 mg tablet 600 mg PO BID 03/14/22 03/14/22 Allergies Allergy/AdvReac Type Severity Reaction Status Date / Time No Known Allergies Allergy Unverified 05/23/22 10:42 Review of Systems Review of Systems: See HPI [facility] Past Medical History Medical History Anxiety Depression Pseudoseizure Seizure disorder Surgical History Surgical History Surgical history unknown Family History Family History Other Family history unknown Social History Social History Social History: Surrogate medical decision maker: Code status: Full code. Smoking status: Unknown if ever smoked Alcohol intake: unknown Substance use: unknown Substance use type: marijuana Additional living arrangements comments: The patient lives with his father in [place]. Additional occupation/education comments: Disabled. Spiritual care concerns: No Course Course Emergency Course: Total critical care time: Approximately 60 minutes Due to a high probability of clinically significant, life threatening deterioration, the patient required my highest level of preparedness to intervene emergently and I personally spent this critical care time directly and personally managing the patient. This critical care time included obtaining a history; examining the patient; pulse oximetry; ordering and review of studies; arranging urgent treatment with development of a management plan; evaluation of patient's response to treatment; frequent reassessment; and, discussion with other providers. This critical care time was performed to assess and manage the high probability of imminent, life-threatening deterioration that could result in multi-organ failure. It was exclusive of separately billable procedures and treating other patients and teaching time. Please see MDM section and the rest of the note for further information on patient assessment and treatment. Reevaluation(s) Reevaluation #1: Patient postictal after first tonic-clonic seizure, after being given 4 mg IM Ativan and initiated on IV Keppra. Patient combative trying to rip off IVs, monitoring, requiring additional IV Ativan 2 mg for concern for postictal state. Consultations Consultation #1: Case discussed with neurologist Dr. Graham, patient history, exam, EKG and ED, on subsequent management. History and exam suggestive of status epilepticus. Recommended loading him with Keppra and when able to tolerate oral intake to give him his ox carbamazepine and he will see the patient in the morning. Date: 08/22/22 Time: 04:48 Vital Signs Vital signs: Vital Signs Temperature 99.6 F 08/22/22 04:12 Pulse Rate 63 08/22/22 04:12 Respiratory Rate 19 08/22/22 04:12 Pulse Oximetry 98 08/22/22 04:12 Temperature 9
[2022-08-22] MEDS: SODIUM CHLORIDE 0.9% IV 1,000 ML 999 ML IV CONT (04:32)
[2022-08-22 04:41] LABS: Basophils Absolute Auto 0.1 K/mm3 (0.0-0.1); Basophils Percent Auto 0.3 % (0.2-1.2); Hematocrit 48.4 % (42.0-52.0); Hemoglobin 15.4 g/dL (14.0-18.0); Immature Granulocyte Absolute 0.08 K/mm3 (0.00-0.031); Immature Granulocyte Percent A 0.4 % (0-0.5); Lymphocytes Percent Auto 8.4 % (18.3-44.2); Mean Corpuscular HGB Conc 31.8 g/dl (32-36); Mean Corpuscular Hemoglobin 30.1 pg (26-34); Mean Corpuscular Volume 94.5 fl (80-100); Mean Platelet Volume 10.8 fl (7.4-10.4); Monocytes Absolute Auto 1.3 K/mm3 (0.1-0.6); Monocytes Percent Auto 6.8 % (2.6-8.5); Neutrophils Percent Auto 84.1 % (45.5-73.1); Platelet Count Result 408 k/mm3 (150-375); Red Blood Count 5.12 M/mm3 (4.6-6.20); Red Cell Distribution Width 13.5 % (11.5-14.5); White Blood Count 19.1 K/mm3 (4.5-10.0)
[2022-08-22] MEDS: levETIRAcetam IV 4,000 MG in DEXTROSE 5% 100 ML 560 MG IVPB (04:47)
[2022-08-22] MEDS: LORazepam INJ (*CRX) 2 MG/ML VIAL IV PUSH (04:55)
--- NOTE | 2022-08-22 05:04 | PC.NURSE ---
Pts. aston Wright was with pt at initial start of seizure. Dad left after seizure and asked to be called with updates throughout the pt stay. Number is [phone]
[2022-08-22 05:22] LABS: Lactic Acid Reflex 21.1 mmol/L (0.7-2.0)
[2022-08-22] MEDS: LACTATED RINGERS 1,000 ML 999 ML IV CONT (05:46)
[2022-08-22 05:49] LABS: Acetaminophen < 10 ug/mL (10-30); Salicylate < 1.0 mg/dL (2-20)
[2022-08-22 05:51] LABS: Alkaline Phosphatase 79 U/L (38-126); Anion Gap 29 mmol/L (8-16); Aspartate Amino Transferase 51 U/L (17-59); Bilirubin,Total 0.5 mg/dL (0.2-1.3); Blood Urea Nitrogen 14 mg/dL (9-20); Calcium 11.5 mg/dL (8.4-10.2); Carbon Dioxide 16 mmol/L (22-30); Chloride 105 mmol/L (98-107); Estimated CRCL calculation 116 ml/min; Estimated Glomerular Filt Rate > 60; Glucose 186 mg/dL (65-110); Potassium 4.6 mmol/L (3.4-5.0); Sodium 150 mmol/L (137-145)
[2022-08-22 05:57] LABS: Alanine Aminotransferase 45 U/L (6-50)
[2022-08-22 06:46] LABS: Albumin Level > 6.0 g/dL (3.5-5.1)
[2022-08-22 07:39] LABS: Reflex Lactic Acid Yes or No Add Lactic
[2022-08-22 08:22] LABS: Alanine Aminotransferase 25 U/L (6-50); Albumin Level 4.4 g/dL (3.5-5.1); Alkaline Phosphatase 62 U/L (38-126); Anion Gap 7 mmol/L (8-16); Aspartate Amino Transferase 45 U/L (17-59); Bilirubin,Total 0.4 mg/dL (0.2-1.3); Blood Urea Nitrogen 13 mg/dL (9-20); Calcium 8.6 mg/dL (8.4-10.2); Carbon Dioxide 26 mmol/L (22-30); Chloride 103 mmol/L (98-107); Estimated CRCL calculation 169 ml/min; Estimated Glomerular Filt Rate > 60; Glucose 109 mg/dL (65-110); Lactic Acid Reflex 1.3 mmol/L (0.7-2.0); Potassium 3.9 mmol/L (3.4-5.0); Sodium 136 mmol/L (137-145)
[2022-08-22 08:54] LABS: Parathyroid Intact 46.6 pg/mL (7.5-53.5)
--- NOTE | 2022-08-22 09:25 | PC.NURSE ---
Patient to room 344 from ER. Patient very lethargic, drowsy, unable to obtain accurate admissions questions and medication reconciliation at this time.
--- NOTE | 2022-08-22 09:30 | PM.IMHP ---
H&P: HPI History of Present Illness Date/Time: 08/22/22929 Chief Complaint: Recurrent, breakthrough seizures Narrative: patient is a 31-year-old male with past medical history of seizures who presented to the ED after having multiple seizures at home. Patient is pretty drowsy and out of it related to medical condition and medications given. Was able to arouse the patient however he is a poor historian at this time. Most of the HPI has been taken from the medical records. According to the ER note the patient had been having multiple seizures at home per his father. It is noted that the patient had 5 seizures within the last 24 hours. Patient had also been out of his medications which the patient indicated that he has been out of his medications for 3 days. Upon arrival to the ED and right as the ER provider was going to assess the patient the patient did have another seizure that was witnessed. Patient was given 4 mg of IV Ativan along with Keppra. Currently patient is resting comfortably in bed. He currently denies any current pain or chest pain or shortness of breath. Was unable to get a complete review of systems due to the patient's mental status and medical condition at this time. patient is being admitted to the hospitalist service as an inpatient and will require more than 2 midnights for treatment and recovery. Review of Systems Review of Systems: ROS unobtainable: Yes unobtainable due to medical condition and unobtainable due to mental status PMFSH Past Medical History Medical History Acute respiratory failure HERBERTH (acute kidney injury) Anxiety Depression Fever Hematemesis Metabolic acidosis Pseudoseizure Respiratory syncytial virus Rhabdomyolysis RSV (respiratory syncytial virus infection) Seizure disorder Status epilepticus Surgical History Surgical History Surgical history unknown Family History Family History Other Family history unknown Social History Social History (Updated 08/22/22 @ 11:33 by PRECIOUS Espinoza) Social History: Patient currently lives at home with his dad. Patient wishes for his dad to be his surrogate if he is unable to make his own decisions. he wishes to be a full code at this time. Smoking status: Never smoker Alcohol intake: never Substance use: current Substance use type: marijuana Lack of Transportation: No Lack of Food: Never True Current Housing: I Have Housing Concerned About Future Housing: No Difficulty Paying Gas/Electric Bills: No Difficulty Paying for Meds: No Currently Unemployed: YES Education: Don't Know Difficulty w/ Childcare or Family Care: No Living arrangements: with family Additional living arrangements comments: The patient lives with his father in [place]. Occupation/Education: other Additional occupation/education comments: Disabled. Gender identity (if verbalized by the patient): Male Sexual Orientation (if Verbalized by the Patient): Straight or Heterosexual Spiritual care concerns: No Agree to blood products: Yes Meds Home Medications and Allergies Home Medications Medication Instructions Recorded Confirmed Type oxcarbazepine 600 mg tablet 600 mg PO BID 03/14/22 08/22/22 History levetiracetam 500 mg tablet 500 mg PO Q12HR 30 days #60 tabs 03/21/22 08/22/22 Rx ([facility]) Allergies Allergy/AdvReac Type Severity Reaction Status Date / Time No Known Allergies Allergy Unverified 05/23/22 10:42 Vital Signs Vital Signs - 24 hr 08/22/22 04:12 08/22/22 04:14 08/22/22 04:15 Temperature 99.6 F Pulse Rate 63 79 Respiratory Rate 19 Blood Pressure Pulse Oximetry 98 97 Oxygen Delivery Nasal Cannula Oxygen Flow Rate 4 08/22/22 04:14 08/22/22 04:27 08/22/22 04:30 Temperature Puls
--- NOTE | 2022-08-22 17:16 | PC.NURSE ---
This patient, Conrad Frye, was admitted to Medical Room 344-01. Patient/family oriented to hospital policies and general routines including ID bracelet, bed and alarms, visiting hours, pain management, procedures, bathroom and other care routines, personal items, smoking policy, room service/diet, and visiting hours. Information on how to activate the Rapid Response Team has been discussed. Patient/Family are encouraged to report perceived risks to care and to ask questions if they do not understand what they are told or what they should do.
[2022-08-22] MEDS: levETIRAcetam 500MG/NACL 100ML 500 MG/100 ML BAG 400 MG IVPB (21:18)
[2022-08-23] VITALS: PULSE 67
[2022-08-23 04:00] VITALS: PULSE 66
[2022-08-23 04:54] VITALS: BP 131/68; PULSE 63; RESP 18; TEMP 36.8; O2SAT 100
[2022-08-23 05:59] LABS: Basophils Percent Auto 0.3 % (0.2-1.2); Eosinophils Percent Auto 0.1 % (0-4.4); Hematocrit 35.5 % (42.0-52.0); Immature Granulocyte Absolute 0.03 K/mm3 (0.00-0.031); Immature Granulocyte Percent A 0.3 % (0-0.5); Lymphocytes Absolute Auto 2.38 K/mm3 (0.9-3.2); Lymphocytes Percent Auto 25.4 % (18.3-44.2); Mean Corpuscular HGB Conc 33.8 g/dl (32-36); Mean Corpuscular Hemoglobin 30.8 pg (26-34); Mean Corpuscular Volume 91.3 fl (80-100); Mean Platelet Volume 10.5 fl (7.4-10.4); Monocytes Absolute Auto 1.1 K/mm3 (0.1-0.6); Monocytes Percent Auto 11.6 % (2.6-8.5); Neutrophils Absolute Auto 5.8 K/mm3 (1.3-6.7); Neutrophils Percent Auto 62.3 % (45.5-73.1); Platelet Count Result 299 k/mm3 (150-375); Red Blood Count 3.89 M/mm3 (4.6-6.20); Red Cell Distribution Width 13.7 % (11.5-14.5); White Blood Count 9.4 K/mm3 (4.5-10.0)
[2022-08-23 06:09] LABS: Alanine Aminotransferase 29 U/L (6-50); Albumin Level 4.6 g/dL (3.5-5.1); Alkaline Phosphatase 52 U/L (38-126); Anion Gap 4 mmol/L (8-16); Aspartate Amino Transferase 80 U/L (17-59); Bilirubin,Total 0.7 mg/dL (0.2-1.3); Blood Urea Nitrogen 9 mg/dL (9-20); Carbon Dioxide 30 mmol/L (22-30); Chloride 102 mmol/L (98-107); Estimated CRCL calculation 191 ml/min; Estimated Glomerular Filt Rate > 60; Glucose 101 mg/dL (65-110); Potassium 3.5 mmol/L (3.4-5.0); Sodium 136 mmol/L (137-145)
[2022-08-23 08:00] VITALS: PULSE 67
[2022-08-23] MEDS: levETIRAcetam 500MG/NACL 100ML 500 MG/100 ML BAG 400 MG IVPB (08:19)
--- NOTE | 2022-08-23 09:20 | PC.NURSE ---
Patients Kenzie called to get update on patient. Software Analyst gave update via telephone on patients status.
--- NOTE | 2022-08-23 09:43 | P.DS_ITS ---
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: Code(s): G40.401 - Other generalized epilepsy and epileptic syndromes, not intractable, with status epilepticus Status: Acute Assessment and Plan: * Report 5+ seizures at home * Stopped medications about 3 days ago * Another seizure in the ED * Ativan given in the ED and continued PRN for breakthrough seizures * Seizure precautions * neuro checks Q4H * 4000mg Keppra in the ED * Continue 500mg IV keppra BID * Neurology consulted thank you for your help * Continue home medications as able * Stable no recurrent seizure over the last 24 hours (2) Epileptic seizure: Code(s): G40.909 - Epilepsy, unspecified, not intractable, without status epilepticus Status: Acute Assessment and Plan: * See above (3) Acute kidney injury: Code(s): N17.9 - Acute kidney failure, unspecified Status: Acute Assessment and Plan: * Cr elevated at 1.20 * Baseline is 0.6-0.7 * NS and LR given in the ED * repeat labs cr 0.70 * most likely related to dehydration * continue to tend lab * consider further fluid resuscitation (4) Lactic acidosis: Code(s): E87.20 - Acidosis, unspecified Status: Acute Assessment and Plan: * Lactic acid is 21.1 * Repeat 1.3 * most likely reactive in regards to current situation * continue to trend * no indication of infection (5) Leukocytosis: Code(s): D72.829 - Elevated white blood cell count, unspecified Status: Acute Assessment and Plan: * WBC 19.1, current 9.4 * no source of infection * Hold off on antibiotics for now * trend labs * adjust therapy as indicated (6) Hypernatremia: Code(s): E87.0 - Hyperosmolality and hypernatremia Status: Acute Assessment and Plan: * Na 150 * most likely related to dehydration * fluids given in the ED * repeat labs Na 136 * adjust therapy as indicated (7) Hypercalcemia: Code(s): E83.52 - Hypercalcemia Status: Acute Assessment and Plan: * Ca 11.5, repeat draw shows 9.0 * PTH 46.6 * ionized Ca ordered * trend labs * Adjust therapy as indicated DS: Summary Hospital Course Hospital Course: Patient is a 31-year-old male with past medical history of seizures who presented to the ED after having multiple seizures at home. patient has been on his medications for 3-5 days. Patient did get 4 g of IV Keppra along with Ativan in the ED for witnessed seizure. Currently patient is alert oriented x4. Patient did state that usually this happens when he runs out of his medications. He states that he usually gets his medications [facility]. upon arrival patient had notable lab abnormalities including leukocytosis, lactic acidosis, hypernatremia with an HERBERTH. After resolution of the seizure and fluids patient's labs have resolved and her back to normal today. Patient denies any current chest pain, shortness a breath, nausea, vomiting, diarrhea constipation. Patient did state that he feels that he can go home and stated that most of t
--- NOTE | 2022-08-23 09:43 | PM.DS ---
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: Code(s): G40.401 - Other generalized epilepsy and epileptic syndromes, not intractable, with status epilepticus Status: Acute Assessment and Plan: Report 5+ seizures at home Stopped medications about 3 days ago Another seizure in the ED Ativan given in the ED and continued PRN for breakthrough seizures Seizure precautions neuro checks Q4H 4000mg Keppra in the ED Continue 500mg IV keppra BID Neurology consulted thank you for your help Continue home medications as able Stable no recurrent seizure over the last 24 hours (2) Epileptic seizure: Code(s): G40.909 - Epilepsy, unspecified, not intractable, without status epilepticus Status: Acute Assessment and Plan: See above (3) Acute kidney injury: Code(s): N17.9 - Acute kidney failure, unspecified Status: Acute Assessment and Plan: Cr elevated at 1.20 Baseline is 0.6-0.7 NS and LR given in the ED repeat labs cr 0.70 most likely related to dehydration continue to tend lab consider further fluid resuscitation (4) Lactic acidosis: Code(s): E87.20 - Acidosis, unspecified Status: Acute Assessment and Plan: Lactic acid is 21.1 Repeat 1.3 most likely reactive in regards to current situation continue to trend no indication of infection (5) Leukocytosis: Code(s): D72.829 - Elevated white blood cell count, unspecified Status: Acute Assessment and Plan: WBC 19.1, current 9.4 no source of infection Hold off on antibiotics for now trend labs adjust therapy as indicated (6) Hypernatremia: Code(s): E87.0 - Hyperosmolality and hypernatremia Status: Acute Assessment and Plan: Na 150 most likely related to dehydration fluids given in the ED repeat labs Na 136 adjust therapy as indicated (7) Hypercalcemia: Code(s): E83.52 - Hypercalcemia Status: Acute Assessment and Plan: Ca 11.5, repeat draw shows 9.0 PTH 46.6 ionized Ca ordered trend labs Adjust therapy as indicated DS: Summary Hospital Course Hospital Course: Patient is a 31-year-old male with past medical history of seizures who presented to the ED after having multiple seizures at home. patient has been on his medications for 3-5 days. Patient did get 4 g of IV Keppra along with Ativan in the ED for witnessed seizure. Currently patient is alert oriented x4. Patient did state that usually this happens when he runs out of his medications. He states that he usually gets his medications by [facility]. upon arrival patient had notable lab abnormalities including leukocytosis, lactic acidosis, hypernatremia with an HERBERTH. After resolution of the seizure and fluids patient's labs have resolved and her back to normal today. Patient denies any current chest pain, shortness a breath, nausea, vomiting, diarrhea constipation. Patient did state that he feels that he can go home and stated that most of this is related to not being able to take his medications. Talked to the patient agreed with putting medications through to a local pharmacy as [facility]. Spoke with Neurology who agrees with this plan. Currently patient is stable for discharge for labs and vital signs and will be going home. Status at Discharge Functional status at discharge: independent ambulation Overall status at discharge: patient is progressing back to baseline Time Spent with Patient Time attestation: Total time spent providing and/or coordinating discharge services: 48 minutes Time spent: Greater than 30 tayler
--- NOTE | 2022-08-23 13:00 | WPDNEURCNPN ---
Assessment and Plan Assessment and plan (1) Epileptic seizure: Code(s): G40.909 - Epilepsy, unspecified, not intractable, without status epilepticus Status: Acute Plan breakthrough seizures because of no medications available treatment continued as such can be discharged with the medication prescription provided Consult date: 08/23/22 HPI: Conrad Frye is a 31 year old male admitted to the hospital through the emergency room with history of having had a seizure as per the information available from the father in the ER he has been out of his medication for the last several days which he usually gets from the [facility] by mail on the day of visit to the ER he has had 5 seizures though prior to that he was in usual state of health. Was noted to have generalized tonic clonic activity with foaming at the mouth in the ER at that time after the initial care he was admitted for further observation his medications include oxcarbazepine 600 mg b.i.d. in the emergency room vital signs were normal , routine lab studies with a pulse of 108 CBC and normal with WBC 19.1 Jailene lactic acid 21.1 patient was continued on oxcarbazepine and Keppra 500 twice a day, chest x-ray was negative he was continued on Keppra 500 q.12 hours IV and oxcarbazepine 600 q.12 hours p.o. Review of Systems Review of Systems: All systems reviewed & are unremarkable except as noted in HPI and below PMFSH Past Medical History Medical History Acute respiratory failure HERBERTH (acute kidney injury) Anxiety Depression Fever Hematemesis Metabolic acidosis Pseudoseizure Respiratory syncytial virus Rhabdomyolysis RSV (respiratory syncytial virus infection) Seizure disorder Status epilepticus Surgical History Surgical History Surgical history unknown Family History Family History Other Family history unknown Social History Social History (Updated 08/22/22 @ 11:33 by PRECIOUS Espinoza) Social History: Patient currently lives at home with his dad. Patient wishes for his dad to be his surrogate if he is unable to make his own decisions. he wishes to be a full code at this time. Smoking status: Never smoker Alcohol intake: never Substance use: current Substance use type: marijuana Lack of Transportation: No Lack of Food: Never True Current Housing: I Have Housing Concerned About Future Housing: No Difficulty Paying Gas/Electric Bills: No Difficulty Paying for Meds: No Currently Unemployed: YES Education: Don't Know Difficulty w/ Childcare or Family Care: No Living arrangements: with family Additional living arrangements comments: The patient lives with his father in [place]. Occupation/Education: other Additional occupation/education comments: Disabled. Gender identity (if verbalized by the patient): Male Sexual Orientation (if Verbalized by the Patient): Straight or Heterosexual Spiritual care concerns: No Agree to blood products: Yes Meds Home Medications and Allergies Home Medications Medication Instructions Recorded Confirmed Type levetiracetam 500 mg tablet 500 mg PO BID #60 tabs 08/23/22 Rx (Keppra) oxcarbazepine 600 mg tablet 600 mg PO BID #60 tabs 08/23/22 Rx Allergies Allergy/AdvReac Type Severity Reaction Status Date / Time No Known Allergies Allergy Unverified 05/23/22 10:42 Vital Signs Vital Signs - 24 hr 08/22/22 14:00 08/22/22 16:00 08/22/22 19:28 Temperature 36.8 C 36.6 C Pulse Rate 96 92 94 Respiratory Rate 16 20 Blood Pressure 110/55 L 121/63 Pulse Oximetry 100 100 Oxygen Delivery 08/22/22 20:00 08/23/22 00:00 08/23/22 04:54 Temperature 36.8 C Pulse Rate 108 H 67 63 Respiratory Rate 18 Blood Pressure 131/68 Pulse Oximetry 100 Oxygen Delivery
[2022-08-23] MEDS: OXcarbazepine 300 MG TABLET 600 MG PO (13:45)
[2022-08-25 15:48] LABS: Ionized Calcium 4.6 mg/dL (4.7-5.5)
[2022-09-02 19:22] LABS: Parathyroid Hormone Related Pr 8 pg/mL (11-20)
== END 2022-08-23 14:18 | disposition home or self-care (01) | DRG 101 ==
LOC: ANHED 06:22 → ANH3MED 08:33
PROVIDERS: Admitting Provider Internal Medicine; Emergency Provider Emergency Medicine; Visit Provider Nurse Practitioner
DX: G40.401 Other generalized epilepsy and epileptic syndromes, not intractable, with status epilepticus (principal); N17.9 Acute kidney failure, unspecified; E87.20 Acidosis, unspecified; E87.0 Hyperosmolality and hypernatremia; E83.52 Hypercalcemia; E86.0 Dehydration; D72.829 Elevated white blood cell count, unspecified
CPT/HCPCS: 36415; 71045; 80048; 80053; 80076; 80307; 82330; 83519; 83605; 83735; 83970; 85025; 93005; 96361; 96365; 96372; 96375; 99285; A9270; J1953; J2060; J7030; J7120